=== PATIENT | male | born 1930 | race Caucasian/White ===

== ENCOUNTER 2017-02-11 18:28 | Inpatient (IN) | payer MEDICARE, MEDICAID ==
--- NOTE | 2017-02-11 20:02 | ED Physician Chart ---
ED Chief Complaint/HPI - Patient Information Date Seen:: 02/11/17 Time Seen:: 18:35 Chief Complaint:: Weakness History of Present Illness:: onset x 3 days of generalized weakness, dizziness, and AMS; no trauma, H/As, neck pain, C/P, SOB, Abd. pain, A/N/V/D/c, fever, chills, or urinary s/s Allergies:: Allergies Allergy/AdvReac Type Severity Reaction Status Date / Time No Known Allergies Allergy Verified 02/11/17 18:33 Vitals:: Vital Signs - 8 hr 02/11/17 18:33 Temp 97.9 F HR 59 RR 16 BP 131/59 O2 Sat % 94 Historian:: Patient, EMS Review:: Nurse's Note Reviewed, EMS run form Reviewed, Transfer documents Reviewed ED Review of Systems - Review of Systems General/Constitutional: Fever, No chills, No weight loss, No weakness, No diaphoresis, No edema, No loss of appetite Skin: No skin lesions, No rash, No bruising Head: No headache, No light-headedness Eyes: No loss of vision, No pain, No diplopia ENT: No earache, No nasal drainage, No sore throat, No tinnitus Neck: No neck pain, No swelling, No thyromegaly, No stiffness, No mass noted Cardio Vascular: No chest pain, No palpitations, No PND, No orthopnea, No edema Pulmonary: SOB, Cough, No sputum, No wheezing GI: No nausea, No vomiting, No diarrhea, No pain, No melena, No hematochezia, No constipation, No hematemesis G/U: No dysuria, No frequency, No hematuria Musculoskeletal: No bone or joint pain, No back pain, No muscle pain Endocrine: No polyuria, No polydipsia Psychiatric: No prior psych history, No depression, No anxiety, No suicidal ideation Hematopoietic: No bruising, No lymphadenopathy Allergic/Immuno: No urticaria, No angioedema Neurological: Syncope, No focal symptoms, Weakness, No paresthesia, No headache , No seizure, Dizziness, Confusion, Vertigo ED Past Medical History - Past Medical History Obtainable: Yes Past Medical History: HTN, CAD, CHF, Dyslipidemia, PUD/GERD, ESRD, Dementia Family History: Heart disease, Diabetes Melitus, HTN Social History: Non Smoker, No Alcohol, No Drug Use, Single, Care Facility Surgical History: None Psychiatricy History: Dementia Medication: Reviewed Family Medical History - Family Member Mother History Unknown: Yes ED Physical Exam - Physical Examination General/Constitutional: Awake, Well-developed, well-nourished, Alert, No distress, GCS 15, Non-toxic appearing, Ambulatory Head: Atraumatic Eyes: Lids, conjuctiva normal, PERRL, EOMI Skin: Nl inspection, No rash, No skin lesions, No ecchymosis, Well hydrated, No lymphadenopathy ENMT: External ears, nose nl, Nasal exam nl, Lips, teeth, gums nl Neck: Nontender, Full ROM w/o pain, No JVD, No nuchal rigidity, No bruit, No mass, No stridor Respiratory: Nl effort/Exclusion, Clear to Auscultation, No Wheeze/Rhonchi/Rales Cardio Vascular: RRR, No murmur, gallop, rubs, NL S1 S2 GI: No tenderness/rebounding/guarding, No organomegaly, No hernia, Normal BS's, Nondistended, No mass/bruits, No McBurney tenderness : No CVA tenderness Extremities: No tenderness or effusion, Full ROM, normal strength in all extremities, No edema, Normal digits & nails Neuro/Psych: DTR's symmetric, Normal sensory exam, Normal motor strength, Judgement/insight normal, Mood normal, Normal gait, No focal deficits Other Neuro/Psych comments:: Confused and Disoriented Misc: Normal back, No paraspinal tenderness ED Labs/Radiology/EKG Results - Lab Results Comments:: H/H: 7.7/24.8 - Radiology Results Results: NAD - EKG Interpretations Rate & Rhythm: NSR Comments:: non-specific st-t changes ED Septic Shock - . Is Septic Shock (SBP<90, OR Lactate>4 mmol\L) present?: No - <6hrs of presentation: Vital Signs: Vital Signs - 8 hr 02/11/17 18:33 Temp 97.9 F HR 59 RR 16 BP 131/59 O2 Sat % 94 ED Reassessment (Disposition) - Reassessment Reassessment Condition:: Improved - Diagnosis Diagnosis:: Dx: AMS; ALOC; Anemia; Weakness - Aftercare/Follow up Instructions Aftercare/Follow-Up Instructions:: Counseled pt regarding lab results/diagnosis & need follow up, Counseled pt & family regarding lab results/diagnosis & need follow up - Patient Disposition Discharge/Transfer:: Acute Care w/in this hosp Accepting Physician:: Dr. Tejada Time Called:: 2199 Time Responded:: 22:00 Admitted to:: Telemetry Spoke to:: Dr. Tejada Admitting Medical Physician:: Dr. Tejada Condition at Disposition:: Stable, Improved
[2017-02-11 20:32] LABS: HEMATOCRIT 24.8 % (41.0-60); MEAN CORPUSCULAR HEMOGLOBIN 18.8 pg (27.0-31.0); MEAN CORPUSCULAR HGB CONC 31.1 pg (28.0-36.0); MEAN PLATELET VOLUME 7.4 fl; PLATELET COUNT 342 Th/cmm (150-400); RED BLOOD COUNT 4.09 Mil/cmm (3.80-5.80); RED CELL DISTRIBUTION WIDTH 17.3 % (11.5-20.0); WHITE BLOOD COUNT 6.2 Th/cmm (4.8-10.8)
[2017-02-11 20:43] LABS: INR 3.06 (0.5-1.4); PROTHROMBIN TIME (TEST) 33.7 SECONDS (9.5-11.5)
[2017-02-11 20:49] LABS: ALB/GLOB RATIO 1.3 (1.0-1.8); ALKALINE PHOSPHATASE 63 U/L (34-104); ANION GAP 9.1 (7.0-16.0); BILIRUBIN,TOTAL 0.3 mg/dL (0.3-1.0); BUN - UREA NITROGEN 24 mg/dL (7-25); CARBON DIOXIDE 23.4 mEq/L (21.0-31.0); CHLORIDE 106 mEq/L (98-107); CHOLESTEROL 136 mg/dL (<200); CREATININE - SERUM 1.6 mg/dL (0.7-1.3); GLUCOSE 128 mg/dL (70-105); POTASSIUM SERUM 4.5 mEq/L (3.5-5.1); SGOT 11 U/L (13-39); SGPT/ALT 10 U/L (7-52); SODIUM SERUM 134 mEq/L (136-145); TRIGLYCERIDES 257 mg/dL (<150)
[2017-02-11 21:43] LABS: HEMOGLOBIN 7.7 gm/dL (12-16)
[2017-02-11 21:51] LABS: MEAN CELL VOLUME 60.7 fl (80-99)
[2017-02-11 21:52] LABS: BAND NEUTROPHILE 0 % (0-10); BASOPHIL 0 % (0-3); EOSINOPHIL 7 % (0-5); NEUTROPHILS 68 % (40-80); PLATELET ESTIMATE ADEQUATE (NORMAL); PLATELET MORPHOLOGY NORMAL (NORMAL); TOTAL CELLS COUNTED 100
[2017-02-11 21:53] LABS: ANISOCYTOSIS 1+; HYPOCHROMIA 1+; MICROCYTOSIS 3+
[2017-02-12] MEDS: D5-0.45NS w/20 mEq KCL 1,000 ML IV SCH (00:25)
[2017-02-12 01:09] VITALS: BP 101/45
--- NOTE | 2017-02-12 01:20 | History & Physical ---
ADMIT DATE: 02/11/2017 CHIEF COMPLAINT: Generalized weakness, altered level of consciousness. HISTORY OF PRESENT ILLNESS: The patient is an 86-year-old male with long history of dementia, degenerative joint disease, cardiac arrhythmia, resident at [facility] transferred to the Emergency Room with generalized weakness, altered level of consciousness. The patient evaluated by the ER physician. Initial workup significant for anemia, hemoglobin was 7.7, creatinine 1.6. The patient admitted to the hospital for more workup. The patient started on IV fluids, regular diet. Blood workup for tomorrow ordered. The patient is a poor historian. PAST MEDICAL HISTORY: Significant for dementia, degenerative joint disease, history of cardiac arrhythmia. PAST SURGICAL HISTORY: No recent surgery. ALLERGIES: None. MEDICATIONS: Follow admission reconciliation. SOCIAL HISTORY: No smoking, alcohol or drug use. FAMILY HISTORY: Noncontributory. REVIEW OF SYSTEMS: RENAL SYSTEM: No history of chronic renal disorder. CARDIOVASCULAR SYSTEM: No coronary artery disease. ENDOCRINE SYSTEM: No diabetes or thyroid problem. GASTROINTESTINAL SYSTEM: No upper or lower gastrointestinal bleed. NEUROLOGICAL SYSTEM: Has history of dementia. GENITOURINARY: He has degenerative joint disease especially on both knees. PHYSICAL EXAMINATION: GENERAL: He is awake, not coherent. VITAL SIGNS: Temperature is 98.5, heart rate 92, blood pressure 117/78. HEENT: Normocephalic. Pupils reacting equally to light and accommodation. Sclerae clear. NECK: Supple. Negative for lymphadenopathy, JVD or bruit. CHEST: ____ bilaterally normal. No rhonchi or wheezing. HEART: S1, S2. No murmur or gallop. ABDOMEN: Soft, bowel sounds positive. EXTREMITIES: Significant for tenderness to both knees. NEUROLOGIC: Awake, not coherent. LABORATORY DATA: White blood cells 6.2, hemoglobin 7.7, hematocrit 24.8, platelets 342. PTT 3.79. INR 3.06. Sodium 134, potassium 4.5, BUN 24, creatinine 1.6. ASSESSMENT: 1. Altered level of consciousness. 2. Severe anemia. 3. Dementia. 4. Degenerative joint disease. PLAN: The patient admitted to the hospital under Dr. Tejada's service, started on IV fluids, regular diet. The patient will resume his home medications. CBC, CMP, PT, INR for tomorrow. Anemia panel ordered. Stool for occult blood ordered. The patient is a full code. JOB# [id number]
[2017-02-12] MEDS ORDERED: Influenza Vaccine 0.5 mL Syr IM ONE (02:58)
[2017-02-12 05:24] LABS: HEMATOCRIT 24.4 % (41.0-60); MEAN CORPUSCULAR HEMOGLOBIN 18.4 pg (27.0-31.0); MEAN CORPUSCULAR HGB CONC 30.2 pg (28.0-36.0); MEAN PLATELET VOLUME 7.4 fl; PLATELET COUNT 344 Th/cmm (150-400); RED BLOOD COUNT 4.02 Mil/cmm (3.80-5.80); RED CELL DISTRIBUTION WIDTH 17.4 % (11.5-20.0); WHITE BLOOD COUNT 5.7 Th/cmm (4.8-10.8)
[2017-02-12 05:40] LABS: HEMOGLOBIN 7.4 gm/dL (12-16); INR 2.71 (0.5-1.4); PROTHROMBIN TIME (TEST) 29.7 SECONDS (9.5-11.5)
[2017-02-12 05:44] LABS: ALB/GLOB RATIO 1.2 (1.0-1.8); ALKALINE PHOSPHATASE 52 U/L (34-104); ANION GAP 9.7 (7.0-16.0); BILIRUBIN,TOTAL 0.3 mg/dL (0.3-1.0); BUN - UREA NITROGEN 21 mg/dL (7-25); CALCIUM SERUM 8.1 mg/dL (8.6-10.3); CARBON DIOXIDE 22.4 mEq/L (21.0-31.0); CHLORIDE 107 mEq/L (98-107); CREATININE - SERUM 1.4 mg/dL (0.7-1.3); GLUCOSE 101 mg/dL (70-105); POTASSIUM SERUM 4.1 mEq/L (3.5-5.1); SGOT 11 U/L (13-39); SGPT/ALT 9 U/L (7-52); SODIUM SERUM 135 mEq/L (136-145)
[2017-02-12 05:54] LABS: EOSINOPHIL 7 % (0-5); HYPOCHROMIA 1+; MICROCYTOSIS 2+; NEUTROPHILS 60 % (40-80); TOTAL CELLS COUNTED 100
[2017-02-12 06:48] LABS: MEAN CELL VOLUME 60.8 fl (80-99)
--- NOTE | 2017-02-12 08:14 | Diagnostic Imaging Report ---
CT scan of the brain without intravenous contrast HISTORY: Altered mental status Total DLP equals 599 CTDI equals 33.9 Axial sections were obtained from the base of the skull to the vertex. There is prominence/enlargement of the ventricular system size. Associated enlargement of cerebral sulci and subarachnoid cisterns. Findings are consistent with changes of generalized cerebral atrophy. No acute parenchymal abnormalities. No acute cerebral hemorrhage. Hypodensity is seen within the supratentorial white matter regions without mass effect. The findings may be associated with chronic small vessel ischemic disease. No extra-axial masses or abnormal fluid collections. IMPRESSION: 1. No acute abnormalities. 2. Cerebral atrophy. 3. Supratentorial white matter changes that may reflect chronic small vessel ischemic disease.
--- NOTE | 2017-02-12 08:16 | Diagnostic Imaging Report ---
Exam: Portable examination of chest. HISTORY: Chest pain. 5: Portable examination of chest at 2044 hours reviewed, no prior studies available comparison. Bony thorax intact. Fusion lower cervical spine appreciated There is no evidence for active pulmonic infiltrates. Atelectasis right base appreciated. The aortic arch calcified. There is evidence of for soft tissue density in the left pulmonary artery which might represent prominent pulmonary hilum. Correlation prior examination recommended. If old films not available comparison CT examination of the chest might be helpful. Bony thorax remarkable for degenerative changes. IMPRESSION: 1. No acute disease 2. Right base atelectasis 3. Soft tissue density measuring 4 cm diameter in the left aortopulmonary window most likely represent prominent pulmonary artery correlation prior studies recommended.
[2017-02-12] MEDS: Multivitamin w/ Minerals Tab PO SCH ×2 (09:39→12:46)
[2017-02-12] MEDS: Calcium Carb/Vit D 500 mg/200 U Tab PO SCH ×2 (09:39→12:45)
--- NOTE | 2017-02-12 19:45 | Internal Medicine Prog Note ---
Internal Medicine Subjective - Subjective Service Date: 02/12/17 Patient seen and examined:: with staff Patient is:: awake, in bed, talking, confused Per staff patient has:: no adverse event (HE FEELS BETTER,NO PAIN OR SOB.) Internal Medicine Objective - Results Result Diagrams: 02/12/17 05:04 02/12/17 05:04 Recent Labs: Laboratory Last Values WBC 5.7 Th/cmm (4.8-10.8) 02/12/17 05:04 RBC 4.02 Mil/cmm (3.80-5.80) 02/12/17 05:04 Hgb 7.4 gm/dL (12-16) L* 02/12/17 05:04 Hct 24.4 % (41.0-60) L 02/12/17 05:04 MCV 60.8 fl (80-99) L 02/12/17 05:04 MCH 18.4 pg (27.0-31.0) L 02/12/17 05:04 MCHC Differential 30.2 pg (28.0-36.0) 02/12/17 05:04 RDW 17.4 % (11.5-20.0) 02/12/17 05:04 Plt Count 344 Th/cmm (150-400) 02/12/17 05:04 MPV 7.4 fl 02/12/17 05:04 Band Neutrophils % 0 % (0-10) 02/11/17 20:21 Neutrophils (Manual) 60 % (40-80) 02/12/17 05:04 Lymphocytes 27 % (20-50) 02/12/17 05:04 Monocytes 6 % (2-10) 02/12/17 05:04 Eosinophils 7 % (0-5) H 02/12/17 05:04 Basophils 0 % (0-3) 02/11/17 20:21 Hypochromia 1+ 02/12/17 05:04 Platelet Estimate ADEQUATE (NORMAL) 02/11/17 20:21 Platelet Morphology NORMAL (NORMAL) 02/11/17 20:21 Anisocytosis 1+ 02/11/17 20:21 Microcytosis 2+ 02/12/17 05:04 RBC Morph Micro Appear ABNORMAL (NORMAL) 02/11/17 20:21 PT 29.7 SECONDS (9.5-11.5) H 02/12/17 05:04 INR 2.71 (0.5-1.4) H 02/12/17 05:04 PTT (Actin FS) 40.1 SECONDS (26.0-38.0) H 02/11/17 20:21 D-Dimer 816 ng/mL (100-400) H 02/11/17 20:21 Sodium 135 mEq/L (136-145) L 02/12/17 05:04 Potassium 4.1 mEq/L (3.5-5.1) 02/12/17 05:04 Chloride 107 mEq/L (98-107) 02/12/17 05:04 Carbon Dioxide 22.4 mEq/L (21.0-31.0) 02/12/17 05:04 Anion Gap 9.7 (7.0-16.0) 02/12/17 05:04 BUN 21 mg/dL (7-25) 02/12/17 05:04 Creatinine 1.4 mg/dL (0.7-1.3) H 02/12/17 05:04 Est GFR ( Amer) TNP 02/12/17 05:04 Est GFR (Non-Af Amer) TNP 02/12/17 05:04 BUN/Creatinine Ratio 15.0 02/12/17 05:04 Glucose 101 mg/dL (70-105) 02/12/17 05:04 Whole Bld Lactic Acid 1.25 mmol/L (0.60-1.99) 02/11/17 20:21 Calcium 8.1 mg/dL (8.6-10.3) L 02/12/17 05:04 Total Bilirubin 0.3 mg/dL (0.3-1.0) 02/12/17 05:04 AST 11 U/L (13-39) L 02/12/17 05:04 ALT 9 U/L (7-52) 02/12/17 05:04 Alkaline Phosphatase 52 U/L (34-104) 02/12/17 05:04 Creatine Kinase 68 U/L (30-223) 02/11/17 20:21 Troponin I 0.02 ng/mL (0.01-0.05) 02/11/17 20:21 B-Natriuretic Peptide 61.6 pg/mL (5.0-100.0) 02/11/17 20:21 Total Protein 5.5 gm/dL (6.0-8.3) L 02/12/17 05:04 Albumin 3.0 gm/dL (4.2-5.5) L 02/12/17 05:04 Globulin 2.5 gm/dL 02/12/17 05:04 Albumin/Globulin Ratio 1.2 (1.0-1.8) 02/12/17 05:04 Triglycerides 257 mg/dL (<150) H 02/11/17 20:21 Cholesterol 136 mg/dL (<200) 02/11/17 20:21 LDL Cholesterol Direct 83 mg/dL (75-193) 02/11/17 20:21 HDL Cholesterol 30 mg/dL (23-92) 02/11/17 20:21 Stool Occult Blood NEGATIVE (NEGATIVE) 02/11/17 22:05 Blood Type O POSITIVE 02/12/17 06:15 Antibody Screen NEGATIVE 02/12/17 06:15 Crossmatch See Detail 02/12/17 06:15 - Physical Exam Vitals and I&O: Vital Signs Temp 98.2 F 02/12/17 15:32 Pulse 87 02/12/17 15:32 Resp 18 02/12/17 15:32 BP 111/93 02/12/17 15:32 Pulse Ox 95 02/12/17 15:32 Intake & Output 02/12/17 02/12/17 02/13/17 06:59 18:59 06:59 Intake Total 1000 Balance 1000 Weight (lbs) 69.899 kg 69.899 kg Intake: Oral 500 Blood Product 500 Other: # Voids 2 # Bowel Movements 0 Stool Characteristics Soft Soft Formed Formed Active Medications: Current Medications Acetaminophen (Tylenol) 650 mg PO Q4HR PRN PRN Reason: Pain (Mild) Stop: 04/12/17 23:12 Calcium/Vitamin D (Oscal W/Vitamin D) 1 tab PO DAILY [facility] Stop: 04/13/17 08:59 Last Admin: 02/12/17 12:45 Dose: 1 tab Docusate Sodium (Colace) 100 mg PO DAILY [facility] Stop: 04/13/17 08:59 Last Admin: 02/12/17 12:45 Dose: 100 mg Donepezil HCl (Aricept) 10 mg PO DAILY [facility] Stop: 04/13/17 08:59 Last Admin: 02/12/17 12:46 Dose: 10 mg Famotidine (Pepcid) 20 mg PO DAILY [facility] Stop: 04/13/17 08:59 Last Admin: 02/12/17 12:45 Dose: 20 mg Potassium Chloride/Dextrose/Sod Cl (D5-0.45ns W/20 Meq Kcl) 1,000 mls @ 75 mls/ hr IV .[id number] SAM Stop: 04/12/17 23:31 Last Admin: 02/12/17 00:25 Dose: 75 mls/hr General: demented HEENT: NC/AT, PERRLA, EOMI, anicteric sclerae, throat clear Neck: Supple, No JVD, No thyromegaly Lungs: CTAB Cardiovascular: Normal S1, Normal S2, without murmur Abdomen: soft, non-tender, non-distended Extremities: clear Neurological: no change Internal Medicine Assmt/Plan - Assessment Assessment: 1.ANEMIA. 2.DEMENTIA - Plan Plan: CONTINUE ON CURRENT MEDICATION AND DIET.CBC AND CMP IN AM. Nutritional Asmnt/Malnutr-PDOC - Dietary Evaluation Malnutrition Findings (Please click <Entered> for more info): Nutritional Asmnt/Malnutrition Start: 02/12/17 14: 35 Text: Status: Complete Freq: Document 02/12/17 14:35 PAM (Rec: 02/12/17 14:40 PAM MCCULLOUGH -[id number]) Nutritional Asmnt/Malnutrition Patient General Information Nutritional Screening Consult Diagnosis ALOC, generalized weakness Pertinent Medical Hx/Surgical Hx PMH: dementia, DJD, cardiac arrhythmia per MDn notes Subjective Information Pt seen for Nutrition Consult (Lino 12). Pt seen resting in bed w/ PRBC infusing as per MD orders. Pt seemingly confused and unable to engage in meaningful RD verbal interview. Pt's son and grandson at bedside participated in interview. They reported that pt usually has a poor appetite and requires encouragement w/ eating. Pt resides at [facility] facility per family report. Per RN, pt has been eating a bit and tolerating current diet well. Family reported that pt enjoys drinking juices and other beverages through a straw. Per nursing notes, pt's stool has been soft/formed, and bowel sounds have been normal. Pt is not yet meeting optimal nutritional needs. Pt may benefit from oral supplement for adequate nutrition. Family reported pt would enjoy chocolate-flavored oral supplement. Pt is not appropriate for nutrition education. Current Diet Order/ Nutrition Support Mechanical soft ground diet Patient / S.O Can Pertinent Medications oscal w/ VIT D, colace, pepcid , KCl/D5%/NaCl IV at 75 ml/hr (306 kcal/day) Pertinent Labs Na 135 L, CRE 1.4 H, ALB 3 L, Triglycerides 257 H, H/H 7.4 L /24.4 L Nutritional Hx/Data Height 1.7 m Height (Calculated Centimeters) 170.2 Current Weight (lbs) 69.853 kg Weight (Calculated Kilograms) 69.9 Weight (Calculated Grams) 22099.2 [place] Body Weight 148 lb, 67 kg % [place] Body Weight 104 Recent Weight Change No Weight Status Approriate GI Symptoms GI Symptoms None Difficult in: Chewing Swallowing Food Allergies No Usual diet at home Pureed Skin Integrity/Comment: Lino: 12; skin intact per nursing notes; very limited mobility noted Current %PO Poor (25-49%) Estimated Nutritional Goals BEE in Kcals: Using Current wt Calories/Kcals/Kg 25-30 kcal/kg CBW (maintenance ) Kcals Calculated 6715-0710 kcal/day Protein: Using Current wt Protein g/k gm/kg CBW (geriatric maintenance) Protein Calculated 70 gm/day Fluid: ml 1.8 L/day (25 ml.kg CBW for geriatric maintenance) Nutritional Problem 1. Problem Problem Inadequate nutritional intakes Etiology related to lack of appetite possibly a/w cognitive limitations Signs/Symptoms: as evidenced by PMH of dementia, and Hx of generally poor appetite without encouragement per family report. Malnutrition Alert Is there a minimum of two criteria No selected? Query Text:Check all the applicable criteria. A minimum of two criteria are recommended for diagnosis of either severe or non-severe malnutrition. Malnutrition Related to Morbid Obesity Malnutrition related to morbid obesity No Intervention/Recommendation Recommendations by RD Increase Calorie Intake Protein supplementation Comments * Recommend mechanical soft ground diet, Boost Plus BID (oral supplement provides an additional 720 kcal/day and 28 gm protein/day) Expected Outcomes/Goals Expected Outcomes/Goals - Monitor appetite and PO intakes w/ goal of pt meeting at least 75% of estimated nutritional needs, labs trending WNL, normal GI function, and skin integrity/ wt maintenance within 3-5 days
[2017-02-13 06:08] LABS: % BASOPHILS 0.9 % (0.0-2.0); % EOSINOPHILS 7.4 % (0.0-5.0); % LYMPHOCYTES 16.1 % (20.0-50.0); % MONOCYTES 11.8 % (2.0-10.0); % NEUTROPHILS 63.8 % (40.0-80.0); MEAN CORPUSCULAR HEMOGLOBIN 21.5 pg (27.0-31.0); MEAN CORPUSCULAR HGB CONC 31.8 pg (28.0-36.0); NEUTROPHILE ABSOLUTE 4.6 Th/cmm (1.8-8.0); PLATELET COUNT 320 Th/cmm (150-400); RED BLOOD COUNT 4.91 Mil/cmm (3.80-5.80); RED CELL DISTRIBUTION WIDTH 24.3 % (11.5-20.0)
[2017-02-13 06:09] LABS: HEMATOCRIT 33.2 % (41.0-60); HEMOGLOBIN 10.5 gm/dL (12-16); WHITE BLOOD COUNT 7.1 Th/cmm (4.8-10.8)
[2017-02-13 06:31] LABS: ALB/GLOB RATIO 1.1 (1.0-1.8); ALKALINE PHOSPHATASE 51 U/L (34-104); ANION GAP 9.3 (7.0-16.0); BILIRUBIN,TOTAL 0.6 mg/dL (0.3-1.0); BUN - UREA NITROGEN 19 mg/dL (7-25); BUN/CREATININE RATIO 13.6; CALCIUM SERUM 8.2 mg/dL (8.6-10.3); CARBON DIOXIDE 21.3 mEq/L (21.0-31.0); CHLORIDE 110 mEq/L (98-107); CREATININE - SERUM 1.4 mg/dL (0.7-1.3); GLUCOSE 92 mg/dL (70-105); POTASSIUM SERUM 4.6 mEq/L (3.5-5.1); SGOT 20 U/L (13-39); SGPT/ALT 16 U/L (7-52); SODIUM SERUM 136 mEq/L (136-145)
[2017-02-13 07:01] LABS: MEAN CELL VOLUME 67.5 fl (80-99)
[2017-02-13] MEDS: Calcium Carb/Vit D 500 mg/200 U Tab PO SCH (08:15)
[2017-02-13] MEDS: Multivitamin w/ Minerals Tab PO SCH (08:15)
[2017-02-13] MEDS: D5-0.45NS w/20 mEq KCL 1,000 ML IV SCH (08:16)
[2017-02-13 09:17] LABS: IRON SATURATION 4 % (15-55); TIBC (LCI) 248 ug/dL (250-450); UIBC 238 ug/dL (111-343)
== END 2017-02-13 14:14 | DRG 811 ==
LOC: ER 18:28 → MSI 22:20
PROVIDERS: ADMIT Family Medicine; ATTEND Family Medicine
PROC: 30233N1 Transfusion of Nonautologous Red Blood Cells into Peripheral Vein, Percutaneous Approach (ICD-10-PCS; principal; 2017-02-12)
DX: D64.9 Anemia, unspecified (principal); N18.6 End stage renal disease; I13.2 Hypertensive heart and chronic kidney disease with heart failure and with stage 5 chronic kidney disease, or end stage renal disease; F03.90 Unspecified dementia, unspecified severity, without behavioral disturbance, psychotic disturbance, mood disturbance, and anxiety; M19.90 Unspecified osteoarthritis, unspecified site; I50.9 Heart failure, unspecified; I25.10 Atherosclerotic heart disease of native coronary artery without angina pectoris; E78.5 Hyperlipidemia, unspecified; K21.9 Gastro-esophageal reflux disease without esophagitis; Z82.49 Family history of ischemic heart disease and other diseases of the circulatory system; Z83.3 Family history of diabetes mellitus
CPT/HCPCS: 36415-UA; 70450-TC; 71010-TC; 80053-TC; 80061-TC; 82270-TC; 82550-TC; 83540-90; 83550-90; 83605; 83880-TC; 84484-TC; 85007-TC; 85025-TC; 85027-TC; 85379-TC; 85610-TC; 85730-TC; 86850-TC; 86900-TC; 86901-TC; 86922-TC; 90784; 93005; 96374; J2060; P9016; Z7610

== ENCOUNTER 2017-02-13 14:35 | Inpatient (IN) | payer MEDICARE, MEDICAID ==
[2017-02-13 16:31] VITALS: BP 122/56
--- NOTE | 2017-02-13 19:24 | Discharge Summary ---
DATE OF DISCHARGE: 02/13/2017 FINAL DIAGNOSES: 1. Severe anemia. 2. Dehydration. 3. Dementia. 4. Gastroesophageal reflux. 5. History of paroxysmal atrial fibrillation. REVIEW OF HISTORY: The patient is an 86-year-old male with long history of dementia, gastroesophageal reflux, and paroxysmal atrial fibrillation, who presented to the Emergency Room with generalized weakness. On arrival, he was evaluated by the physician. Initial workup was significant for anemia and dehydration. The patient admitted to the hospital and 2 units of blood ordered and started on IV fluid. PHYSICAL EXAMINATION: GENERAL: On admission, he was very confused. VITAL SIGNS: Temperature 98, heart rate 88, and blood pressure 132/70. CHEST: Clear to auscultation. ABDOMEN: Soft. Bowel sounds positive. EXTREMITIES: No edema. LABORATORY DATA: Hemoglobin 7.4. COURSE OF HOSPITALIZATION: During his hospitalization, the patient received 2 units of blood, was rehydrated well. On the 02/12/2017, chest is clear to auscultation. Abdomen is soft and bowel sounds positive. Extremities have no edema. Hemoglobin is 10.4. DISPOSITION: On 02/13/2017, the patient was clinically stable. The patient was transferred to [facility] to continue on medication and diet. CONDITION ON DISCHARGE: Stable. MEDICATIONS: Follow discharge reconciliation. [facility]# [id number]
[2017-02-14] MEDS: Potassium Chloride 20 mEq ER Tab PO SCH (09:04)
--- NOTE | 2017-02-14 22:24 | History & Physical ---
ADMIT DATE: 02/13/2017 CHIEF COMPLAINT: Confusion. HISTORY OF PRESENT ILLNESS: This is an 86-year-old male with past medical history significant for dementia and gastroesophageal reflux disorder, was initially evaluated in [facility] for generalized weakness. The patient was found to be anemic. He received 2 units of packed red blood cells and was ____ and now sent for Psychiatric Unit for further psychiatric evaluation in [facility]. The patient is seen in the hospital bed. He is awake and alert, confused and a poor historian. Denies any pain, appears in no distress. PAST MEDICAL HISTORY: The patient has history of dementia, gastroesophageal reflux disorder, atrial fibrillation. MEDICATIONS: Per reconciliation. ALLERGIES: No known drug allergies. SOCIAL HISTORY: Denies tobacco, alcohol or illicit drug use. FAMILY HISTORY: Noncontributory. REVIEW OF SYSTEMS: IMMUNOLOGIC: No recurrent infection. CARDIOVASCULAR: No heart disease or hypertension. GASTROINTESTINAL: No nausea, vomiting or diarrhea. ENDOCRINE: No diabetes or thyroid disorder. NEUROLOGIC: No seizure or stroke. HEMATOLOGIC: No bleeding problems. PHYSICAL EXAMINATION: GENERAL: The patient is awake, alert, no acute distress. VITAL SIGNS: Temperature 98.3, pulse 79, respirations 18, blood pressure 106/48. HEENT: Pupils equally round. Anicteric sclerae. NECK: Supple, no JVD, mass or bruit auscultation. HEART: S1, S2 regular rate and rhythm. ABDOMEN: Soft, nontender, positive bowel sounds. EXTREMITIES: No clubbing, cyanosis or edema. BACK: No deformity. NEUROLOGIC: Moves all extremities equally. No lateralizing signs. ASSESSMENT: 1.Dementia. 2.Anemia, status post transfusion. 3.gastroesophageal reflux disorder. 4.History of atrial fibrillation. PLAN: Continue current medications and diet. We will continue to follow. JOB# [id number]
--- NOTE | 2017-02-14 22:58 | Consultation ---
DATE OF CONSULTATION: 02/14/2017 The patient was seen and evaluated. The patient's chart were reviewed. This is initial psychiatric evaluation. This is Dr. Reyna covering for Dr. Brown. CHIEF COMPLAINT: Altered mental status and agitation. HISTORY OF PRESENT ILLNESS: This is an 86-year-old male with a longstanding history of severe dementia and psychosis, who was brought here in the Emergency Room after found to be having generalized weakness and altered level of consciousness. Initial workup of the patient was negative. He was hydrated and then transferred here to the psych unit. Labs were reviewed. PAST MEDICAL HISTORY: Significant for dementia, DJD, cardiac arrhythmia. PAST SURGICAL HISTORY: None. ALLERGIES TO MEDICATIONS: NKDA. CURRENT MEDICATIONS: Upon transfer, he is on Aricept 10 mg p.o. b.i.d., famotidine 20 mg p.o. every day, Lasix, multivitamins, potassium chloride, warfarin. FAMILY PSYCHIATRIC HISTORY: None. ____ HISTORY: None. Previous history of alcohol or drug use, unknown. Previous inpatient, comprehensive rehabilitation, unknown. MENTAL STATUS EXAMINATION: Hits his room number board, difficult to engage in conversation, easily irritable, refuses the interview, unable to assess thought process, thought content. Poor insight, judgment and impulse control. Assessment of suicidal risk is high. ASSESSMENT AND PLAN: The patient is an 86-year-old male with a severe neurocognitive impairment with behavior disturbances and unspecified psychotic disorder who presents easily irritable, agitated medically cleared. We will continue monitor and evaluate. We will continue with Aricept and augment current regimen, antipsychotic if needed. In the meantime, we will obtain more collateral baseline information. ESTIMATED LENGTH OF STAY: Between 5-10 days, ____ no suicidal or homicidal ideation. PRIMARY DIAGNOSES: Unspecified psychosis disorder, rule out behavior disturbance secondary to dementia, rule out schizophrenia. MEDICAL DIAGNOSES: As noted above. SECONDARY DIAGNOSIS: None. [facility]# [id number]
[2017-02-15 06:33] LABS: % BASOPHILS 1.3 % (0.0-2.0); % EOSINOPHILS 9.3 % (0.0-5.0); % MONOCYTES 12.8 % (2.0-10.0); % NEUTROPHILS 58.6 % (40.0-80.0); HEMATOCRIT 33.5 % (41.0-60); HEMOGLOBIN 10.6 gm/dL (12-16); MEAN CORPUSCULAR HEMOGLOBIN 21.3 pg (27.0-31.0); MEAN CORPUSCULAR HGB CONC 31.5 pg (28.0-36.0); MEAN PLATELET VOLUME 7.6 fl; NEUTROPHILE ABSOLUTE 3.5 Th/cmm (1.8-8.0); PLATELET COUNT 340 Th/cmm (150-400); RED BLOOD COUNT 4.95 Mil/cmm (3.80-5.80); RED CELL DISTRIBUTION WIDTH 24.7 % (11.5-20.0); WHITE BLOOD COUNT 6.1 Th/cmm (4.8-10.8)
[2017-02-15 07:10] LABS: ANION GAP 9.5 (7.0-16.0); BUN - UREA NITROGEN 18 mg/dL (7-25); CALCIUM SERUM 8.4 mg/dL (8.6-10.3); CARBON DIOXIDE 20.9 mEq/L (21.0-31.0); CHLORIDE 109 mEq/L (98-107); CREATININE - SERUM 1.2 mg/dL (0.7-1.3); GLUCOSE 90 mg/dL (70-105); POTASSIUM SERUM 4.4 mEq/L (3.5-5.1); SODIUM SERUM 135 mEq/L (136-145)
[2017-02-15 07:31] LABS: MEAN CELL VOLUME 67.6 fl (80-99)
[2017-02-15] MEDS: Potassium Chloride 20 mEq ER Tab PO SCH (10:12)
--- NOTE | 2017-02-15 19:30 | Progress Notes ---
DATE: 02/15/2017 SUBJECTIVE: The patient was seen and evaluated. The patient's chart was reviewed. OBJECTIVE: VITAL SIGNS: Reviewed, stable. Overnight nursing staff reported the patient mostly has been isolating, withdrawn in his room, minimally interactive. Today on [id number] evaluation, the patient was selectively mute, observed to be responding, distraught, and unable to engage in a linear conversation. MENTAL STATUS EXAMINATION: He is still very distraught, observed to be responding, selectively mute, disengaging, and withdrawn. ASSESSMENT AND PLAN: The patient is an 86-year-old male who was observed to be continued to disorganized and responding internally preoccupied, unable to formulate a safe plan outside the structured environment. We will continue with the current medication regimen which was recently initiated yesterday to target the patient has still residual psychotic symptoms that impaired ability to provide food, snf, and clothing outside of the structured environment. JOB# [id number]
--- NOTE | 2017-02-15 21:01 | General Progress Note ---
Subjective - Review of Systems Service Date: 02/15/17 Subjective: resting comfortably no distress Objective - Results Result Diagrams: 02/15/17 06:05 02/15/17 06:05 Recent Labs: Laboratory Last Values WBC 6.1 Th/cmm (4.8-10.8) 02/15/17 06:05 RBC 4.95 Mil/cmm (3.80-5.80) 02/15/17 06:05 Hgb 10.6 gm/dL (12-16) L 02/15/17 06:05 Hct 33.5 % (41.0-60) L 02/15/17 06:05 MCV 67.6 fl (80-99) L 02/15/17 06:05 MCH 21.3 pg (27.0-31.0) L 02/15/17 06:05 MCHC Differential 31.5 pg (28.0-36.0) 02/15/17 06:05 RDW 24.7 % (11.5-20.0) H 02/15/17 06:05 Plt Count 340 Th/cmm (150-400) 02/15/17 06:05 MPV 7.6 fl 02/15/17 06:05 Neutrophils % 58.6 % (40.0-80.0) 02/15/17 06:05 Lymphocytes % 18.0 % (20.0-50.0) L 02/15/17 06:05 Monocytes % 12.8 % (2.0-10.0) H 02/15/17 06:05 Eosinophils % 9.3 % (0.0-5.0) H 02/15/17 06:05 Basophils % 1.3 % (0.0-2.0) 02/15/17 06:05 Sodium 135 mEq/L (136-145) L 02/15/17 06:05 Potassium 4.4 mEq/L (3.5-5.1) 02/15/17 06:05 Chloride 109 mEq/L (98-107) H 02/15/17 06:05 Carbon Dioxide 20.9 mEq/L (21.0-31.0) L 02/15/17 06:05 Anion Gap 9.5 (7.0-16.0) 02/15/17 06:05 BUN 18 mg/dL (7-25) 02/15/17 06:05 Creatinine 1.2 mg/dL (0.7-1.3) 02/15/17 06:05 Est GFR ( Amer) TNP 02/15/17 06:05 Est GFR (Non-Af Amer) TNP 02/15/17 06:05 BUN/Creatinine Ratio 15.0 02/15/17 06:05 Glucose 90 mg/dL (70-105) 02/15/17 06:05 Calcium 8.4 mg/dL (8.6-10.3) L 02/15/17 06:05 - Physical Exam Vitals and I&O: Vital Signs Temp 97.8 F 02/15/17 20:18 Pulse 74 02/15/17 20:18 Resp 19 02/15/17 20:18 BP 123/45 02/15/17 20:18 Pulse Ox 96 02/15/17 20:18 Intake & Output 02/15/17 02/15/17 02/16/17 06:59 18:59 06:59 Intake Total 360 800 240 Balance 360 800 240 Intake: Oral 360 800 240 Other: # Voids 1 5 1 # Bowel Movements 2 Active Medications: Current Medications Acetaminophen (Tylenol) 650 mg PO Q4H PRN PRN Reason: Pain (Mild) Stop: 04/14/17 16:44 Docusate Sodium (Colace) 100 mg PO DAILY [facility] Stop: 04/15/17 08:59 Last Admin: 02/15/17 10:13 Dose: 100 mg Donepezil HCl (Aricept) 10 mg PO DAILY [facility] Stop: 04/15/17 08:59 Last Admin: 02/15/17 10:13 Dose: 10 mg Famotidine (Pepcid) 20 mg PO DAILY [facility] Stop: 04/15/17 08:59 Last Admin: 02/15/17 10:14 Dose: 20 mg Furosemide (Lasix) 40 mg PO BID [facility] Stop: 04/14/17 16:59 Last Admin: 02/15/17 18:01 Dose: Not Given Lorazepam (Ativan) 0.5 mg PO Q4HR PRN; Protocol PRN Reason: Anxiety Stop: 03/15/17 16:48 Potassium Chloride (Klor-Con) 20 meq PO DAILY [facility] Stop: 04/15/17 08:59 Last Admin: 02/15/17 10:12 Dose: 20 meq Zolpidem Tartrate (Ambien) 5 mg PO HS PRN PRN Reason: Insomnia Stop: 04/14/17 16:48 General: Alert, No acute distress HEENT: Atraumatic, PERRLA Neck: Supple, JVD Cardiovascular: Regular rate, Normal S1, Normal S2 Lungs: Clear to auscultation Abdomen: Bowel sounds, Soft - Procedures Procedures: Procedures Procedure Code Date BLOOD TRANSFUSION SERVICE 18252 02/11/17 TRANSFUSE NONAUT RED BLOOD CELLS IN PERIPH VEIN, [facility] [id number] 02/11/17 Assessment/Plan - Assessment Assessment: DEMENTIA ANEMIA GERD ATRIAL FIBRILLATION - Plan Plan: CONT CURRENT TREATMENT
[2017-02-16] MEDS: Potassium Chloride 20 mEq ER Tab PO SCH (10:26)
--- NOTE | 2017-02-16 19:05 | Internal Medicine Prog Note ---
Internal Medicine Subjective - Subjective Service Date: 02/16/17 Patient seen and examined:: without staff (HE FEELS WELL) Patient is:: awake, verbal, in bed Per staff patient has:: no adverse event Internal Medicine Objective - Results Result Diagrams: 02/15/17 06:05 02/15/17 06:05 Recent Labs: Laboratory Last Values WBC 6.1 Th/cmm (4.8-10.8) 02/15/17 06:05 RBC 4.95 Mil/cmm (3.80-5.80) 02/15/17 06:05 Hgb 10.6 gm/dL (12-16) L 02/15/17 06:05 Hct 33.5 % (41.0-60) L 02/15/17 06:05 MCV 67.6 fl (80-99) L 02/15/17 06:05 MCH 21.3 pg (27.0-31.0) L 02/15/17 06:05 MCHC Differential 31.5 pg (28.0-36.0) 02/15/17 06:05 RDW 24.7 % (11.5-20.0) H 02/15/17 06:05 Plt Count 340 Th/cmm (150-400) 02/15/17 06:05 MPV 7.6 fl 02/15/17 06:05 Neutrophils % 58.6 % (40.0-80.0) 02/15/17 06:05 Lymphocytes % 18.0 % (20.0-50.0) L 02/15/17 06:05 Monocytes % 12.8 % (2.0-10.0) H 02/15/17 06:05 Eosinophils % 9.3 % (0.0-5.0) H 02/15/17 06:05 Basophils % 1.3 % (0.0-2.0) 02/15/17 06:05 Sodium 135 mEq/L (136-145) L 02/15/17 06:05 Potassium 4.4 mEq/L (3.5-5.1) 02/15/17 06:05 Chloride 109 mEq/L (98-107) H 02/15/17 06:05 Carbon Dioxide 20.9 mEq/L (21.0-31.0) L 02/15/17 06:05 Anion Gap 9.5 (7.0-16.0) 02/15/17 06:05 BUN 18 mg/dL (7-25) 02/15/17 06:05 Creatinine 1.2 mg/dL (0.7-1.3) 02/15/17 06:05 Est GFR ( Amer) TNP 02/15/17 06:05 Est GFR (Non-Af Amer) TNP 02/15/17 06:05 BUN/Creatinine Ratio 15.0 02/15/17 06:05 Glucose 90 mg/dL (70-105) 02/15/17 06:05 Calcium 8.4 mg/dL (8.6-10.3) L 02/15/17 06:05 - Physical Exam Vitals and I&O: Vital Signs Temp 97.8 F 02/16/17 15:43 Pulse 89 02/16/17 15:43 Resp 18 02/16/17 15:43 BP 96/57 02/16/17 18:56 Pulse Ox 95 02/16/17 15:43 Intake & Output 02/16/17 02/16/17 02/17/17 06:59 18:59 06:59 Intake Total 240 1600 Balance 240 1600 Intake: Oral 240 1600 Other: # Voids 3 4 # Bowel Movements 0 1 Active Medications: Current Medications Acetaminophen (Tylenol) 650 mg PO Q4H PRN PRN Reason: Pain (Mild) Stop: 04/14/17 16:44 Docusate Sodium (Colace) 100 mg PO DAILY [facility] Stop: 04/15/17 08:59 Last Admin: 02/16/17 10:26 Dose: 100 mg Donepezil HCl (Aricept) 10 mg PO DAILY [facility] Stop: 04/15/17 08:59 Last Admin: 02/16/17 10:26 Dose: 10 mg Famotidine (Pepcid) 20 mg PO DAILY [facility] Stop: 04/15/17 08:59 Last Admin: 02/16/17 10:26 Dose: 20 mg Furosemide (Lasix) 40 mg PO BID [facility] Stop: 04/14/17 16:59 Last Admin: 02/16/17 18:56 Dose: Not Given Lorazepam (Ativan) 0.5 mg PO Q4HR PRN; Protocol PRN Reason: Anxiety Stop: 03/15/17 16:48 Memantine (Namenda) 5 mg PO DAILY [facility] Stop: 04/17/17 14:59 Potassium Chloride (Klor-Con) 20 meq PO DAILY [facility] Stop: 04/15/17 08:59 Last Admin: 02/16/17 10:26 Dose: 20 meq Zolpidem Tartrate (Ambien) 5 mg PO HS PRN PRN Reason: Insomnia Stop: 04/14/17 16:48 General: demented HEENT: NC/AT, PERRLA, EOMI, anicteric sclerae, throat clear Neck: Supple, No JVD, No thyromegaly, +2 carotid pulse wo bruit, No LAD Lungs: CTAB Cardiovascular: Normal S1, Normal S2, without murmur Abdomen: non-tender, non-distended Extremities: edema Neurological: no change - Procedures Procedures: Procedures Procedure Code Date BLOOD TRANSFUSION SERVICE 56476 02/11/17 TRANSFUSE NONAUT RED BLOOD CELLS IN PERIPH VEIN, [facility] 50714H0 02/11/17 Internal Medicine Assmt/Plan - Assessment Assessment: 1.ANEMIA 2.ONOFRE. 3.DEMENTIA. - Plan Plan: CONTINUE ON CURRENT MEDICATION AND DIET.
--- NOTE | 2017-02-17 03:03 | Progress Notes ---
DATE: 02/16/2017 Case was discussed with staff of the patient, reviewed records. The patient is an 86-year-old male who is a well-known case to me and I have seen him at [facility]. I have been seeing him for the past 2 years. He was agitated and that led to his admission. He is demented, confused, has altered level of consciousness. He is unpredictable, impulsive, unable to make safe plan for self-care. He is sleeping well, eating well, had to be fed by the staff and I will be initiating Namenda on him to help with his confusion. I will continue to work with the patient in group therapy, milieu therapy, and adjust medication as needed. JOB# [id number]
[2017-02-17] MEDS: Potassium Chloride 20 mEq ER Tab PO SCH (08:46)
--- NOTE | 2017-02-17 19:27 | Internal Medicine Prog Note ---
Internal Medicine Subjective - Subjective Service Date: 02/17/17 Patient seen and examined:: with staff (HE FEELS WELL) Patient is:: awake, verbal, in bed Per staff patient has:: no adverse event Internal Medicine Objective - Results Result Diagrams: 02/15/17 06:05 02/15/17 06:05 Recent Labs: Laboratory Last Values WBC 6.1 Th/cmm (4.8-10.8) 02/15/17 06:05 RBC 4.95 Mil/cmm (3.80-5.80) 02/15/17 06:05 Hgb 10.6 gm/dL (12-16) L 02/15/17 06:05 Hct 33.5 % (41.0-60) L 02/15/17 06:05 MCV 67.6 fl (80-99) L 02/15/17 06:05 MCH 21.3 pg (27.0-31.0) L 02/15/17 06:05 MCHC Differential 31.5 pg (28.0-36.0) 02/15/17 06:05 RDW 24.7 % (11.5-20.0) H 02/15/17 06:05 Plt Count 340 Th/cmm (150-400) 02/15/17 06:05 MPV 7.6 fl 02/15/17 06:05 Neutrophils % 58.6 % (40.0-80.0) 02/15/17 06:05 Lymphocytes % 18.0 % (20.0-50.0) L 02/15/17 06:05 Monocytes % 12.8 % (2.0-10.0) H 02/15/17 06:05 Eosinophils % 9.3 % (0.0-5.0) H 02/15/17 06:05 Basophils % 1.3 % (0.0-2.0) 02/15/17 06:05 Sodium 135 mEq/L (136-145) L 02/15/17 06:05 Potassium 4.4 mEq/L (3.5-5.1) 02/15/17 06:05 Chloride 109 mEq/L (98-107) H 02/15/17 06:05 Carbon Dioxide 20.9 mEq/L (21.0-31.0) L 02/15/17 06:05 Anion Gap 9.5 (7.0-16.0) 02/15/17 06:05 BUN 18 mg/dL (7-25) 02/15/17 06:05 Creatinine 1.2 mg/dL (0.7-1.3) 02/15/17 06:05 Est GFR ( Amer) TNP 02/15/17 06:05 Est GFR (Non-Af Amer) TNP 02/15/17 06:05 BUN/Creatinine Ratio 15.0 02/15/17 06:05 Glucose 90 mg/dL (70-105) 02/15/17 06:05 Calcium 8.4 mg/dL (8.6-10.3) L 02/15/17 06:05 - Physical Exam Vitals and I&O: Vital Signs Temp 97.6 F 02/17/17 14:23 Pulse 80 02/17/17 14:23 Resp 20 02/17/17 14:23 BP 138/72 02/17/17 17:37 Pulse Ox 96 02/17/17 14:23 Intake & Output 02/17/17 02/17/17 02/18/17 06:59 18:59 06:59 Intake Total 240 800 Balance 240 800 Intake: Oral 240 800 Other: # Voids 1 3 # Bowel Movements 1 Active Medications: Current Medications Acetaminophen (Tylenol) 650 mg PO Q4H PRN PRN Reason: Pain (Mild) Stop: 04/14/17 16:44 Docusate Sodium (Colace) 100 mg PO DAILY [facility] Stop: 04/15/17 08:59 Last Admin: 02/17/17 08:46 Dose: 100 mg Donepezil HCl (Aricept) 10 mg PO DAILY [facility] Stop: 04/15/17 08:59 Last Admin: 02/17/17 08:47 Dose: 10 mg Famotidine (Pepcid) 20 mg PO DAILY [facility] Stop: 04/15/17 08:59 Last Admin: 02/17/17 08:48 Dose: 20 mg Furosemide (Lasix) 40 mg PO BID [facility] Stop: 04/14/17 16:59 Last Admin: 02/17/17 17:37 Dose: 40 mg Lorazepam (Ativan) 0.5 mg PO Q4HR PRN; Protocol PRN Reason: Anxiety Stop: 03/15/17 16:48 Memantine (Namenda) 5 mg PO DAILY [facility] Stop: 04/17/17 14:59 Last Admin: 02/17/17 08:47 Dose: 5 mg Potassium Chloride (Klor-Con) 20 meq PO DAILY [facility] Stop: 04/15/17 08:59 Last Admin: 02/17/17 08:46 Dose: 20 meq Zolpidem Tartrate (Ambien) 5 mg PO HS PRN PRN Reason: Insomnia Stop: 04/14/17 16:48 General: demented HEENT: NC/AT, PERRLA, EOMI, anicteric sclerae, throat clear Neck: Supple, No JVD, No thyromegaly, +2 carotid pulse wo bruit, No LAD Lungs: CTAB Cardiovascular: Normal S1, Normal S2, without murmur Abdomen: non-tender, non-distended Extremities: edema Neurological: no change - Procedures Procedures: Procedures Procedure Code Date BLOOD TRANSFUSION SERVICE 89884 02/11/17 TRANSFUSE NONAUT RED BLOOD CELLS IN PERIPH VEIN, [facility] 44303C8 02/11/17 Internal Medicine Assmt/Plan - Assessment Assessment: 1.ANEMIA 2.ONOFRE. 3.DEMENTIA. - Plan Plan: CONTINUE ON CURRENT MEDICATION AND DIET.
--- NOTE | 2017-02-17 22:13 | Progress Notes ---
DATE: 02/17/2017 Case was discussed with staff of the patient, reviewed records. The patient continues to be unpredictable, impulsive, needing help with his ADLs. He has been unable to swallow and they ordered fluid diet for him; also asked him to consult with Dr. Tejada regarding that, if he needed a swallow study though the staff told me today he ate by himself 100% of his breakfast. He is still confused, demented, easily agitated, but compliant with medication with no side effects. We will continue to work with the patient in group therapy, milieu therapy, and adjust medications as needed. JOB# [id number]
[2017-02-18] MEDS: Potassium Chloride 20 mEq ER Tab PO SCH (09:29)
--- NOTE | 2017-02-18 17:15 | Progress Notes ---
DATE: Case was discussed with staff of the patient, reviewed records. The patient as I find talking with, he was moved across from nurses' station. He is on ____. He is still unpredictable, impulsive, needing re-direction, confused. No side effects with the medication, no sedation, no nausea and we will continue to work with the patient in group therapy, milieu therapy, adjust the medication as needed. JOB# [id number]
--- NOTE | 2017-02-18 19:40 | Internal Medicine Prog Note ---
Internal Medicine Subjective - Subjective Service Date: 02/18/17 Patient seen and examined:: with staff (he feels well,no complain) Patient is:: awake, verbal, in bed Per staff patient has:: no adverse event Internal Medicine Objective - Results Result Diagrams: 02/15/17 06:05 02/15/17 06:05 Recent Labs: Laboratory Last Values WBC 6.1 Th/cmm (4.8-10.8) 02/15/17 06:05 RBC 4.95 Mil/cmm (3.80-5.80) 02/15/17 06:05 Hgb 10.6 gm/dL (12-16) L 02/15/17 06:05 Hct 33.5 % (41.0-60) L 02/15/17 06:05 MCV 67.6 fl (80-99) L 02/15/17 06:05 MCH 21.3 pg (27.0-31.0) L 02/15/17 06:05 MCHC Differential 31.5 pg (28.0-36.0) 02/15/17 06:05 RDW 24.7 % (11.5-20.0) H 02/15/17 06:05 Plt Count 340 Th/cmm (150-400) 02/15/17 06:05 MPV 7.6 fl 02/15/17 06:05 Neutrophils % 58.6 % (40.0-80.0) 02/15/17 06:05 Lymphocytes % 18.0 % (20.0-50.0) L 02/15/17 06:05 Monocytes % 12.8 % (2.0-10.0) H 02/15/17 06:05 Eosinophils % 9.3 % (0.0-5.0) H 02/15/17 06:05 Basophils % 1.3 % (0.0-2.0) 02/15/17 06:05 Sodium 135 mEq/L (136-145) L 02/15/17 06:05 Potassium 4.4 mEq/L (3.5-5.1) 02/15/17 06:05 Chloride 109 mEq/L (98-107) H 02/15/17 06:05 Carbon Dioxide 20.9 mEq/L (21.0-31.0) L 02/15/17 06:05 Anion Gap 9.5 (7.0-16.0) 02/15/17 06:05 BUN 18 mg/dL (7-25) 02/15/17 06:05 Creatinine 1.2 mg/dL (0.7-1.3) 02/15/17 06:05 Est GFR ( Amer) TNP 02/15/17 06:05 Est GFR (Non-Af Amer) TNP 02/15/17 06:05 BUN/Creatinine Ratio 15.0 02/15/17 06:05 Glucose 90 mg/dL (70-105) 02/15/17 06:05 Calcium 8.4 mg/dL (8.6-10.3) L 02/15/17 06:05 - Physical Exam Vitals and I&O: Vital Signs Temp 98.2 F 02/18/17 14:00 Pulse 84 02/18/17 14:00 Resp 20 02/18/17 14:00 BP 120/60 02/18/17 16:38 Pulse Ox 97 02/18/17 14:00 Intake & Output 02/18/17 02/18/17 02/19/17 06:59 18:59 06:59 Intake Total 120 700 Balance 120 700 Intake: Oral 120 700 Other: # Voids 3 3 # Bowel Movements 0 0 Active Medications: Current Medications Acetaminophen (Tylenol) 650 mg PO Q4H PRN PRN Reason: Pain (Mild) Stop: 04/14/17 16:44 Docusate Sodium (Colace) 100 mg PO DAILY [facility] Stop: 04/15/17 08:59 Last Admin: 02/18/17 09:29 Dose: 100 mg Donepezil HCl (Aricept) 10 mg PO DAILY [facility] Stop: 04/15/17 08:59 Last Admin: 02/18/17 09:29 Dose: 10 mg Famotidine (Pepcid) 20 mg PO DAILY [facility] Stop: 04/15/17 08:59 Last Admin: 02/18/17 09:30 Dose: 20 mg Furosemide (Lasix) 40 mg PO BID [facility] Stop: 04/14/17 16:59 Last Admin: 02/18/17 16:38 Dose: 40 mg Lorazepam (Ativan) 0.5 mg PO Q4HR PRN; Protocol PRN Reason: Anxiety Stop: 03/15/17 16:48 Memantine (Namenda) 5 mg PO DAILY [facility] Stop: 04/17/17 14:59 Last Admin: 02/18/17 09:29 Dose: 5 mg Potassium Chloride (Klor-Con) 20 meq PO DAILY [facility] Stop: 04/15/17 08:59 Last Admin: 02/18/17 09:29 Dose: 20 meq Zolpidem Tartrate (Ambien) 5 mg PO HS PRN PRN Reason: Insomnia Stop: 04/14/17 16:48 General: demented HEENT: NC/AT, PERRLA, EOMI, anicteric sclerae, throat clear Neck: Supple, No JVD, No thyromegaly, +2 carotid pulse wo bruit, No LAD Lungs: CTAB Cardiovascular: Normal S1, Normal S2, without murmur Abdomen: non-tender, non-distended Extremities: edema Neurological: no change - Procedures Procedures: Procedures Procedure Code Date BLOOD TRANSFUSION SERVICE 96318 02/11/17 TRANSFUSE NONAUT RED BLOOD CELLS IN PERIPH VEIN, [facility] 57203H4 02/11/17 Internal Medicine Assmt/Plan - Assessment Assessment: 1.ANEMIA 2.ONOFRE. 3.DEMENTIA. - Plan Plan: CONTINUE ON CURRENT MEDICATION AND DIET.
--- NOTE | 2017-02-19 07:42 | Diagnostic Imaging Report ---
CHEST X-RAY: AP view INDICATION: Pneumonia COMPARISON: Chest x-ray 02/11/2017 FINDINGS: Mild increase bibasal lung markings are noted. No pleural effusions. No consolidation. Heart size normal. Atherosclerosis is noted. IMPRESSION: Mild increased bibasal lung markings favoring atelectasis, however faint infiltrates of the lung bases cannot be completely excluded given patient's clinical history.
[2017-02-19] MEDS: Potassium Chloride 20 mEq ER Tab PO SCH (10:10)
--- NOTE | 2017-02-19 17:45 | Internal Medicine Prog Note ---
Internal Medicine Subjective - Subjective Service Date: 02/19/17 Patient seen and examined:: with staff (HE FEELS WELL.) Patient is:: awake, verbal, in bed Per staff patient has:: no adverse event Internal Medicine Objective - Results Result Diagrams: 02/15/17 06:05 02/15/17 06:05 Recent Labs: Laboratory Last Values WBC 6.1 Th/cmm (4.8-10.8) 02/15/17 06:05 RBC 4.95 Mil/cmm (3.80-5.80) 02/15/17 06:05 Hgb 10.6 gm/dL (12-16) L 02/15/17 06:05 Hct 33.5 % (41.0-60) L 02/15/17 06:05 MCV 67.6 fl (80-99) L 02/15/17 06:05 MCH 21.3 pg (27.0-31.0) L 02/15/17 06:05 MCHC Differential 31.5 pg (28.0-36.0) 02/15/17 06:05 RDW 24.7 % (11.5-20.0) H 02/15/17 06:05 Plt Count 340 Th/cmm (150-400) 02/15/17 06:05 MPV 7.6 fl 02/15/17 06:05 Neutrophils % 58.6 % (40.0-80.0) 02/15/17 06:05 Lymphocytes % 18.0 % (20.0-50.0) L 02/15/17 06:05 Monocytes % 12.8 % (2.0-10.0) H 02/15/17 06:05 Eosinophils % 9.3 % (0.0-5.0) H 02/15/17 06:05 Basophils % 1.3 % (0.0-2.0) 02/15/17 06:05 Sodium 135 mEq/L (136-145) L 02/15/17 06:05 Potassium 4.4 mEq/L (3.5-5.1) 02/15/17 06:05 Chloride 109 mEq/L (98-107) H 02/15/17 06:05 Carbon Dioxide 20.9 mEq/L (21.0-31.0) L 02/15/17 06:05 Anion Gap 9.5 (7.0-16.0) 02/15/17 06:05 BUN 18 mg/dL (7-25) 02/15/17 06:05 Creatinine 1.2 mg/dL (0.7-1.3) 02/15/17 06:05 Est GFR ( Amer) TNP 02/15/17 06:05 Est GFR (Non-Af Amer) TNP 02/15/17 06:05 BUN/Creatinine Ratio 15.0 02/15/17 06:05 Glucose 90 mg/dL (70-105) 02/15/17 06:05 Calcium 8.4 mg/dL (8.6-10.3) L 02/15/17 06:05 - Physical Exam Vitals and I&O: Vital Signs Temp 97.9 F 02/19/17 14:00 Pulse 99 02/19/17 14:00 Resp 20 02/19/17 14:00 BP 119/53 02/19/17 17:21 Pulse Ox 96 02/19/17 14:00 Intake & Output 02/18/17 02/19/17 02/19/17 18:59 06:59 18:59 Intake Total 700 120 Balance 700 120 Intake: Oral 700 120 Other: # Voids 3 3 # Bowel Movements 0 Active Medications: Current Medications Acetaminophen (Tylenol) 650 mg PO Q4H PRN PRN Reason: Pain (Mild) Stop: 04/14/17 16:44 Docusate Sodium (Colace) 100 mg PO DAILY [facility] Stop: 04/15/17 08:59 Last Admin: 02/19/17 10:08 Dose: 100 mg Donepezil HCl (Aricept) 10 mg PO DAILY [facility] Stop: 04/15/17 08:59 Last Admin: 02/19/17 10:09 Dose: 10 mg Famotidine (Pepcid) 20 mg PO DAILY [facility] Stop: 04/15/17 08:59 Last Admin: 02/19/17 10:09 Dose: 20 mg Furosemide (Lasix) 40 mg PO BID [facility] Stop: 04/14/17 16:59 Last Admin: 02/19/17 17:21 Dose: Not Given Lorazepam (Ativan) 0.5 mg PO Q4HR PRN; Protocol PRN Reason: Anxiety Stop: 03/15/17 16:48 Memantine (Namenda) 5 mg PO DAILY [facility] Stop: 04/17/17 14:59 Last Admin: 02/19/17 10:07 Dose: 5 mg Potassium Chloride (Klor-Con) 20 meq PO DAILY [facility] Stop: 04/15/17 08:59 Last Admin: 02/19/17 10:10 Dose: 20 meq Zolpidem Tartrate (Ambien) 5 mg PO HS PRN PRN Reason: Insomnia Stop: 04/14/17 16:48 General: demented HEENT: NC/AT, PERRLA, EOMI, anicteric sclerae, throat clear Neck: Supple, No JVD, No thyromegaly, +2 carotid pulse wo bruit, No LAD Lungs: CTAB Cardiovascular: Normal S1, Normal S2, without murmur Abdomen: non-tender, non-distended Extremities: edema Neurological: no change - Procedures Procedures: Procedures Procedure Code Date BLOOD TRANSFUSION SERVICE 33815 02/11/17 TRANSFUSE NONAUT RED BLOOD CELLS IN PERIPH VEIN, [facility] [id number] 02/11/17 Internal Medicine Assmt/Plan - Assessment Assessment: 1.ANEMIA 2.ONOFRE. 3.DEMENTIA. - Plan Plan: CONTINUE ON CURRENT MEDICATION AND DIET.
--- NOTE | 2017-02-19 23:14 | Progress Notes ---
DATE: 02/19/2017 The case was discussed with staff of the patient. The patient is unable to swallow. Swallow study will be done for him. He is on aspiration precaution. He is sleeping well. He is unable to eat. He is still confused, unpredictable, impulsive, needing redirection. I do not have him on any antipsychotic to attribute his difficulty with swallowing to the antipsychotics that may happen sometimes and we will continue avoiding to do that. We will continue to work with the patient in group therapy, milieu therapy, adjust medication as needed. JOB# [id number]
[2017-02-20] MEDS: Potassium Chloride 20 mEq ER Tab PO SCH (18:48)
--- NOTE | 2017-02-20 20:39 | Internal Medicine Prog Note ---
Internal Medicine Subjective - Subjective Service Date: 02/20/17 Patient seen and examined:: with staff (he feels well) Patient is:: awake, verbal, in bed Per staff patient has:: no adverse event Internal Medicine Objective - Results Result Diagrams: 02/15/17 06:05 02/15/17 06:05 Recent Labs: Laboratory Last Values WBC 6.1 Th/cmm (4.8-10.8) 02/15/17 06:05 RBC 4.95 Mil/cmm (3.80-5.80) 02/15/17 06:05 Hgb 10.6 gm/dL (12-16) L 02/15/17 06:05 Hct 33.5 % (41.0-60) L 02/15/17 06:05 MCV 67.6 fl (80-99) L 02/15/17 06:05 MCH 21.3 pg (27.0-31.0) L 02/15/17 06:05 MCHC Differential 31.5 pg (28.0-36.0) 02/15/17 06:05 RDW 24.7 % (11.5-20.0) H 02/15/17 06:05 Plt Count 340 Th/cmm (150-400) 02/15/17 06:05 MPV 7.6 fl 02/15/17 06:05 Neutrophils % 58.6 % (40.0-80.0) 02/15/17 06:05 Lymphocytes % 18.0 % (20.0-50.0) L 02/15/17 06:05 Monocytes % 12.8 % (2.0-10.0) H 02/15/17 06:05 Eosinophils % 9.3 % (0.0-5.0) H 02/15/17 06:05 Basophils % 1.3 % (0.0-2.0) 02/15/17 06:05 Sodium 135 mEq/L (136-145) L 02/15/17 06:05 Potassium 4.4 mEq/L (3.5-5.1) 02/15/17 06:05 Chloride 109 mEq/L (98-107) H 02/15/17 06:05 Carbon Dioxide 20.9 mEq/L (21.0-31.0) L 02/15/17 06:05 Anion Gap 9.5 (7.0-16.0) 02/15/17 06:05 BUN 18 mg/dL (7-25) 02/15/17 06:05 Creatinine 1.2 mg/dL (0.7-1.3) 02/15/17 06:05 Est GFR ( Amer) TNP 02/15/17 06:05 Est GFR (Non-Af Amer) TNP 02/15/17 06:05 BUN/Creatinine Ratio 15.0 02/15/17 06:05 Glucose 90 mg/dL (70-105) 02/15/17 06:05 Calcium 8.4 mg/dL (8.6-10.3) L 02/15/17 06:05 - Physical Exam Vitals and I&O: Vital Signs Temp 97.9 F 02/19/17 14:00 Pulse 99 02/19/17 14:00 Resp 20 02/19/17 14:00 BP 107/47 02/20/17 18:49 Pulse Ox 96 02/19/17 14:00 Active Medications: Current Medications Acetaminophen (Tylenol) 650 mg PO Q4H PRN PRN Reason: Pain (Mild) Stop: 04/14/17 16:44 Docusate Sodium (Colace) 100 mg PO DAILY [facility] Stop: 04/15/17 08:59 Last Admin: 02/20/17 10:00 Dose: 100 mg Donepezil HCl (Aricept) 10 mg PO DAILY [facility] Stop: 04/15/17 08:59 Last Admin: 02/20/17 10:00 Dose: 10 mg Famotidine (Pepcid) 20 mg PO DAILY [facility] Stop: 04/15/17 08:59 Last Admin: 02/20/17 10:00 Dose: 20 mg Furosemide (Lasix) 40 mg PO BID [facility] Stop: 04/14/17 16:59 Last Admin: 02/20/17 18:49 Dose: Not Given Lorazepam (Ativan) 0.5 mg PO Q4HR PRN; Protocol PRN Reason: Anxiety Stop: 03/15/17 16:48 Memantine (Namenda) 5 mg PO DAILY [facility] Stop: 04/17/17 14:59 Last Admin: 02/20/17 10:00 Dose: 5 mg Potassium Chloride (Klor-Con) 20 meq PO DAILY [facility] Stop: 04/15/17 08:59 Last Admin: 02/20/17 18:48 Dose: 20 meq Zolpidem Tartrate (Ambien) 5 mg PO HS PRN PRN Reason: Insomnia Stop: 04/14/17 16:48 General: demented HEENT: NC/AT, PERRLA, EOMI, anicteric sclerae, throat clear Neck: Supple, No JVD, No thyromegaly, +2 carotid pulse wo bruit, No LAD Lungs: CTAB Cardiovascular: Normal S1, Normal S2, without murmur Abdomen: non-tender, non-distended Extremities: edema Neurological: no change - Procedures Procedures: Procedures Procedure Code Date BLOOD TRANSFUSION SERVICE 71663 02/11/17 TRANSFUSE NONAUT RED BLOOD CELLS IN PERIPH VEIN, PERC 54174U1 02/11/17 Internal Medicine Assmt/Plan - Assessment Assessment: 1.ANEMIA 2.ONOFRE. 3.DEMENTIA. - Plan Plan: CONTINUE ON CURRENT MEDICATION AND DIET. Nutritional Asmnt/Malnutr-PDOC - Dietary Evaluation Malnutrition Findings (Please click <Entered> for more info): Nutritional Asmnt/Malnutrition Start: 02/14/17 08: 28 Text: Status: Complete Freq: Document 02/20/17 15:57 MPENAFUERT (Rec: 02/20/17 16:08 MPENAFUERT JAMEL -FNS4) Nutritional Asmnt/Malnutrition Patient General Information Nutritional Screening Low Risk Diagnosis Psychosis Pertinent Medical Hx/Surgical Hx Dementia, GERD, atr fibr per MD notes Subjective Information Pt was seen and evaluated by ST for swallow eval on ; ST rec initiated and ongoing: pureed diet, honey thick liquids. RD called [facility] and spoke w/ pt's primary RN. RN statd that pt had a good appetite at lunch today and tolerated about 70% of Boost, apple juice, and pudding. She stated that she tries very hard to encourage pt to eat, as pt requires maximum assistance during meal times. She also confirmed pt' s anthropometrics, and stated that pt has not yet had a BM today. Pt is likely meeting lower end of estimated nutritional needs. Current diet is appropriate and adequate. Pt is not appropriate for nutrition education. Current Diet Order/ Nutrition Support Pureed, Boost BID, honey thick liquids Patient / S.O Can't verbalize diet edu Pertinent Medications colace, pepcid Pertinent Labs 02/15/17: Na 135 L, H/H 10.6 L /33.4 L, Ca 8.4 L Nutritional Hx/Data Height 1.7 m Height (Calculated Centimeters) 170.2 Current Weight (lbs) 67.132 kg Weight (Calculated Kilograms) 67.1 Weight (Calculated Grams) 98115.7 [place] Body Weight 148 lb, 67 kg % [place] Body Weight 100 Weight Status Approriate GI Symptoms GI Symptoms None Difficult in: Chewing Swallowing Food Allergies No Skin Integrity/Comment: Lino scale: 18; per RN, skin intact Current %PO Fair (50-74%) Estimated Nutritional Goals BEE in Kcals: Using Current wt Calories/Kcals/Kg 25-30 kcal/kg CBW for maintenance Kcals Calculated 4736-4224 kcal/day Protein: Using Current wt Protein g/k gm/kg CBW for geriatric maintenance Protein Calculated 67 gm/day Fluid: ml 1.7 L/day (25 ml/kg CBW for geriatric maintenance) Nutritional Problem 1. Problem Problem Chewing/swallowing difficulty Etiology related to possible cognitive limitations Signs/Symptoms: as evidenced by Hx of dementia , need for swallow evaluation, and current pureed diet w/ honey thick liquids food- texture modification. Malnutrition Alert Is there a minimum of two criteria No selected? Query Text:Check all the applicable criteria. A minimum of two criteria are recommended for diagnosis of either severe or non-severe malnutrition. Malnutrition Related to Morbid Obesity Malnutrition related to morbid obesity No Intervention/Recommendation Comments * Recommend continuing pureed, Boost BID, honey thick liquids per MD (oral supplement provides an additional 720 kcal/day and 30 gm protein/day) Expected Outcomes/Goals Expected Outcomes/Goals - Monitor appetite and PO intakes w/ goal of pt meeting at least 75% of estimated nutritional needs, labs trending WNL, normal GI function, and skin integrity/ wt maintenance within 7 days 02/20/17 16:06 Dietitian Notes by Clau Hand. Keily Addendum entered by Ma. Keily Hand 02/20/17 16:09: * Recommend continuing pureed, Boost BID, honey thick liquids per MD (oral supplement provides an additional 720 kcal/day and 30 gm protein/day) Original Note: Room/Bed: [address] Dietitian Recommendations * Recommend continuing pureed, Boost BID, honey thick liquids per MD Please refer to Nutrition Assessment for details. Initialized on 02/20/17 16:06 - END OF NOTE
--- NOTE | 2017-02-21 01:58 | Progress Notes ---
DATE: 02/20/2017 Case was discussed with staff of the patient, reviewed records. The patient continues to be unpredictable, impulsive, and needing redirection. I am avoiding giving any antipsychotic for this long problem. Dr. Tejada believes it is because of his medication; however, the patient is not on any antipsychotic that may do that. He is only on Aricept and Namenda. Swallow study was done for him. We will continue to work with the patient in group therapy, milieu therapy, and adjust medications. JOB# [id number]
[2017-02-21] MEDS: Potassium Chloride 20 mEq ER Tab PO SCH (09:41)
--- NOTE | 2017-02-21 16:08 | Internal Medicine Prog Note ---
Internal Medicine Subjective - Subjective Service Date: 02/21/17 Patient seen and examined:: with staff (HE THROUGH UP ONE TIME.) Patient is:: awake, verbal, in bed Per staff patient has:: no adverse event Internal Medicine Objective - Results Result Diagrams: 02/15/17 06:05 02/15/17 06:05 Recent Labs: Laboratory Last Values WBC 6.1 Th/cmm (4.8-10.8) 02/15/17 06:05 RBC 4.95 Mil/cmm (3.80-5.80) 02/15/17 06:05 Hgb 10.6 gm/dL (12-16) L 02/15/17 06:05 Hct 33.5 % (41.0-60) L 02/15/17 06:05 MCV 67.6 fl (80-99) L 02/15/17 06:05 MCH 21.3 pg (27.0-31.0) L 02/15/17 06:05 MCHC Differential 31.5 pg (28.0-36.0) 02/15/17 06:05 RDW 24.7 % (11.5-20.0) H 02/15/17 06:05 Plt Count 340 Th/cmm (150-400) 02/15/17 06:05 MPV 7.6 fl 02/15/17 06:05 Neutrophils % 58.6 % (40.0-80.0) 02/15/17 06:05 Lymphocytes % 18.0 % (20.0-50.0) L 02/15/17 06:05 Monocytes % 12.8 % (2.0-10.0) H 02/15/17 06:05 Eosinophils % 9.3 % (0.0-5.0) H 02/15/17 06:05 Basophils % 1.3 % (0.0-2.0) 02/15/17 06:05 Sodium 135 mEq/L (136-145) L 02/15/17 06:05 Potassium 4.4 mEq/L (3.5-5.1) 02/15/17 06:05 Chloride 109 mEq/L (98-107) H 02/15/17 06:05 Carbon Dioxide 20.9 mEq/L (21.0-31.0) L 02/15/17 06:05 Anion Gap 9.5 (7.0-16.0) 02/15/17 06:05 BUN 18 mg/dL (7-25) 02/15/17 06:05 Creatinine 1.2 mg/dL (0.7-1.3) 02/15/17 06:05 Est GFR ( Amer) TNP 02/15/17 06:05 Est GFR (Non-Af Amer) TNP 02/15/17 06:05 BUN/Creatinine Ratio 15.0 02/15/17 06:05 Glucose 90 mg/dL (70-105) 02/15/17 06:05 Calcium 8.4 mg/dL (8.6-10.3) L 02/15/17 06:05 - Physical Exam Vitals and I&O: Vital Signs Temp 95.7 F 02/20/17 20:00 Pulse 85 02/20/17 20:00 Resp 18 02/20/17 20:00 BP 134/77 02/21/17 09:40 Pulse Ox 94 02/20/17 20:00 Active Medications: Current Medications Acetaminophen (Tylenol) 650 mg PO Q4H PRN PRN Reason: Pain (Mild) Stop: 04/14/17 16:44 Docusate Sodium (Colace) 100 mg PO DAILY [facility] Stop: 04/15/17 08:59 Last Admin: 02/21/17 09:48 Dose: Not Given Donepezil HCl (Aricept) 10 mg PO DAILY [facility] Stop: 04/15/17 08:59 Last Admin: 02/21/17 09:41 Dose: 10 mg Famotidine (Pepcid) 20 mg PO DAILY [facility] Stop: 04/15/17 08:59 Last Admin: 02/21/17 09:40 Dose: 20 mg Furosemide (Lasix) 40 mg PO BID [facility] Stop: 04/14/17 16:59 Last Admin: 02/21/17 09:40 Dose: 40 mg Memantine (Namenda) 5 mg PO DAILY [facility] Stop: 04/17/17 14:59 Last Admin: 02/21/17 09:41 Dose: 5 mg Ondansetron HCl (Zofran Odt) 4 mg PO Q4H PRN PRN Reason: Nausea / Vomiting Stop: 04/22/17 12:50 Last Admin: 02/21/17 13:25 Dose: 4 mg Potassium Chloride (Klor-Con) 20 meq PO DAILY [facility] Stop: 04/15/17 08:59 Last Admin: 02/21/17 09:41 Dose: 20 meq General: demented HEENT: NC/AT, PERRLA, EOMI, anicteric sclerae, throat clear Neck: Supple, No JVD, No thyromegaly, +2 carotid pulse wo bruit, No LAD Lungs: CTAB Cardiovascular: Normal S1, Normal S2, without murmur Abdomen: non-tender, non-distended Extremities: edema Neurological: no change - Procedures Procedures: Procedures Procedure Code Date BLOOD TRANSFUSION SERVICE 34647 02/11/17 TRANSFUSE NONAUT RED BLOOD CELLS IN PERIPH VEIN, PERC 69696Q8 02/11/17 Internal Medicine Assmt/Plan - Assessment Assessment: 1.ANEMIA 2.ONOFRE. 3.DEMENTIA. - Plan Plan: CONTINUE ON CURRENT MEDICATION AND DIET.ZOFRAN 4 MG PO Q 6H PRN. Nutritional Asmnt/Malnutr-PDOC - Dietary Evaluation Malnutrition Findings (Please click <Entered> for more info): Nutritional Asmnt/Malnutrition Start: 02/14/17 08: 28 Text: Status: Complete Freq: Document 02/20/17 15:57 MPENAFUERT (Rec: 02/20/17 16:08 MPENAFUERT JAMEL -FNS4) Nutritional Asmnt/Malnutrition Patient General Information Nutritional Screening Low Risk Diagnosis Psychosis Pertinent Medical Hx/Surgical Hx Dementia, GERD, atr fibr per MD notes Subjective Information Pt was seen and evaluated by ST for swallow eval on ; ST rec initiated and ongoing: pureed diet, honey thick liquids. RD called [facility] station and spoke w/ pt's primary RN. RN statd that pt had a good appetite at lunch today and tolerated about 70% of Boost, apple juice, and pudding. She stated that she tries very hard to encourage pt to eat, as pt requires maximum assistance during meal times. She also confirmed pt' s anthropometrics, and stated that pt has not yet had a BM today. Pt is likely meeting lower end of estimated nutritional needs. Current diet is appropriate and adequate. Pt is not appropriate for nutrition education. Current Diet Order/ Nutrition Support Pureed, Boost BID, honey thick liquids Patient / S.O Can't verbalize diet edu Pertinent Medications colace, pepcid Pertinent Labs 02/15/17: Na 135 L, H/H 10.6 L /33.4 L, Ca 8.4 L Nutritional Hx/Data Height 1.7 m Height (Calculated Centimeters) 170.2 Current Weight (lbs) 67.132 kg Weight (Calculated Kilograms) 67.1 Weight (Calculated Grams) 61150.7 [place] Body Weight 148 lb, 67 kg % [place] Body Weight 100 Weight Status Approriate GI Symptoms GI Symptoms None Difficult in: Chewing Swallowing Food Allergies No Skin Integrity/Comment: Lino scale: 18; per RN, skin intact Current %PO Fair (50-74%) Estimated Nutritional Goals BEE in Kcals: Using Current wt Calories/Kcals/Kg 25-30 kcal/kg CBW for maintenance Kcals Calculated 7071-6947 kcal/day Protein: Using Current wt Protein g/k gm/kg CBW for geriatric maintenance Protein Calculated 67 gm/day Fluid: ml 1.7 L/day (25 ml/kg CBW for geriatric maintenance) Nutritional Problem 1. Problem Problem Chewing/swallowing difficulty Etiology related to possible cognitive limitations Signs/Symptoms: as evidenced by Hx of dementia , need for swallow evaluation, and current pureed diet w/ honey thick liquids food- texture modification. Malnutrition Alert Is there a minimum of two criteria No selected? Query Text:Check all the applicable criteria. A minimum of two criteria are recommended for diagnosis of either severe or non-severe malnutrition. Malnutrition Related to Morbid Obesity Malnutrition related to morbid obesity No Intervention/Recommendation Comments * Recommend continuing pureed, Boost BID, honey thick liquids per MD (oral supplement provides an additional 720 kcal/day and 30 gm protein/day) Expected Outcomes/Goals Expected Outcomes/Goals - Monitor appetite and PO intakes w/ goal of pt meeting at least 75% of estimated nutritional needs, labs trending WNL, normal GI function, and skin integrity/ wt maintenance within 7 days 02/20/17 16:06 Dietitian Notes by Clau Hand. Keily Addendum entered by Ma. Keily Hand 02/20/17 16:09: * Recommend continuing pureed, Boost BID, honey thick liquids per MD (oral supplement provides an additional 720 kcal/day and 30 gm protein/day) Original Note: Room/Bed: [address] Dietitian Recommendations * Recommend continuing pureed, Boost BID, honey thick liquids per MD Please refer to Nutrition Assessment for details. Initialized on 02/20/17 16:06 - END OF NOTE
--- NOTE | 2017-02-21 17:08 | Progress Notes ---
DATE: SUBJECTIVE: The patient was seen, chart reviewed, discussed with staff. The patient with a longstanding history of dementia, psychosis. On [id number], the patient is confused, not really answering any questions interview. Dr. Brown noting that the patient is with continued behaviors, impulsive, needing a lot of redirection. The patient needing a lot of care from staff. Medications reviewed. No side effects. ASSESSMENT: The patient remains confused, highly forgetful, somewhat bizarre presentation . PLAN: We will continue to monitor given the patient's ongoing symptoms, he is not safe for discharge. JOB# [id number]
[2017-02-22] MEDS: Potassium Chloride 20 mEq ER Tab PO SCH (09:42)
--- NOTE | 2017-02-22 12:22 | Progress Notes ---
DATE: SUBJECTIVE: The patient seen, chart reviewed, discussed with staff. The patient with history of dementia, psychosis, brought in from the Emergency Room with generalized weakness, altered, longstanding history of dementia, so remains withdrawn, confused. The patient's symptoms continue to be ongoing, not really answering any questions, still with continued behaviors, needing lot of redirection. Medications reviewed. No noted side effects. ASSESSMENT AND PLAN: The patient remains confused and disoriented. We will monitor and follow up. [facility]# [id number]
--- NOTE | 2017-02-22 17:49 | Internal Medicine Prog Note ---
Internal Medicine Subjective - Subjective Service Date: 02/22/17 Patient seen and examined:: with staff (HE FEELS BETTER,NO NAUSEA OR VOMITING.) Patient is:: awake, verbal, in bed Per staff patient has:: no adverse event Internal Medicine Objective - Results Result Diagrams: 02/15/17 06:05 02/15/17 06:05 Recent Labs: Laboratory Last Values WBC 6.1 Th/cmm (4.8-10.8) 02/15/17 06:05 RBC 4.95 Mil/cmm (3.80-5.80) 02/15/17 06:05 Hgb 10.6 gm/dL (12-16) L 02/15/17 06:05 Hct 33.5 % (41.0-60) L 02/15/17 06:05 MCV 67.6 fl (80-99) L 02/15/17 06:05 MCH 21.3 pg (27.0-31.0) L 02/15/17 06:05 MCHC Differential 31.5 pg (28.0-36.0) 02/15/17 06:05 RDW 24.7 % (11.5-20.0) H 02/15/17 06:05 Plt Count 340 Th/cmm (150-400) 02/15/17 06:05 MPV 7.6 fl 02/15/17 06:05 Neutrophils % 58.6 % (40.0-80.0) 02/15/17 06:05 Lymphocytes % 18.0 % (20.0-50.0) L 02/15/17 06:05 Monocytes % 12.8 % (2.0-10.0) H 02/15/17 06:05 Eosinophils % 9.3 % (0.0-5.0) H 02/15/17 06:05 Basophils % 1.3 % (0.0-2.0) 02/15/17 06:05 Sodium 135 mEq/L (136-145) L 02/15/17 06:05 Potassium 4.4 mEq/L (3.5-5.1) 02/15/17 06:05 Chloride 109 mEq/L (98-107) H 02/15/17 06:05 Carbon Dioxide 20.9 mEq/L (21.0-31.0) L 02/15/17 06:05 Anion Gap 9.5 (7.0-16.0) 02/15/17 06:05 BUN 18 mg/dL (7-25) 02/15/17 06:05 Creatinine 1.2 mg/dL (0.7-1.3) 02/15/17 06:05 Est GFR ( Amer) TNP 02/15/17 06:05 Est GFR (Non-Af Amer) TNP 02/15/17 06:05 BUN/Creatinine Ratio 15.0 02/15/17 06:05 Glucose 90 mg/dL (70-105) 02/15/17 06:05 Calcium 8.4 mg/dL (8.6-10.3) L 02/15/17 06:05 - Physical Exam Vitals and I&O: Vital Signs Temp 97.4 F 02/22/17 14:00 Pulse 102 02/22/17 14:00 Resp 20 02/22/17 14:00 BP 99/52 02/22/17 14:00 Pulse Ox 97 02/22/17 14:00 Active Medications: Current Medications Acetaminophen (Tylenol) 650 mg PO Q4H PRN PRN Reason: Pain (Mild) Stop: 04/14/17 16:44 Docusate Sodium (Colace) 100 mg PO DAILY [facility] Stop: 04/15/17 08:59 Last Admin: 02/22/17 09:42 Dose: 100 mg Donepezil HCl (Aricept) 10 mg PO DAILY [facility] Stop: 04/15/17 08:59 Last Admin: 02/22/17 09:42 Dose: 10 mg Famotidine (Pepcid) 20 mg PO DAILY [facility] Stop: 04/15/17 08:59 Last Admin: 02/22/17 09:42 Dose: 20 mg Furosemide (Lasix) 40 mg PO BID [facility] Stop: 04/14/17 16:59 Last Admin: 02/22/17 16:03 Dose: Not Given Memantine (Namenda) 5 mg PO DAILY [facility] Stop: 04/17/17 14:59 Last Admin: 02/22/17 09:42 Dose: 5 mg Ondansetron HCl (Zofran Odt) 4 mg PO Q4H PRN PRN Reason: Nausea / Vomiting Stop: 04/22/17 12:50 Last Admin: 02/21/17 13:25 Dose: 4 mg Potassium Chloride (Klor-Con) 20 meq PO DAILY [facility] Stop: 04/15/17 08:59 Last Admin: 02/22/17 09:42 Dose: 20 meq General: demented HEENT: NC/AT, PERRLA, EOMI, anicteric sclerae, throat clear Neck: Supple, No JVD, No thyromegaly, +2 carotid pulse wo bruit, No LAD Lungs: CTAB Cardiovascular: Normal S1, Normal S2, without murmur Abdomen: non-tender, non-distended Extremities: edema Neurological: no change - Procedures Procedures: Procedures Procedure Code Date BLOOD TRANSFUSION SERVICE 93298 02/11/17 TRANSFUSE NONAUT RED BLOOD CELLS IN PERIPH VEIN, PERC 89869U8 02/11/17 Internal Medicine Assmt/Plan - Assessment Assessment: 1.ANEMIA 2.ONOFRE. 3.DEMENTIA. - Plan Plan: CONTINUE ON CURRENT MEDICATION AND DIET. Nutritional Asmnt/Malnutr-PDOC - Dietary Evaluation Malnutrition Findings (Please click <Entered> for more info): Nutritional Asmnt/Malnutrition Start: 02/14/17 08: 28 Text: Status: Complete Freq: Document 02/20/17 15:57 MPENAFUERT (Rec: 02/20/17 16:08 MPENAFUERT JAMEL -FNS4) Nutritional Asmnt/Malnutrition Patient General Information Nutritional Screening Low Risk Diagnosis Psychosis Pertinent Medical Hx/Surgical Hx Dementia, GERD, atr fibr per MD notes Subjective Information Pt was seen and evaluated by ST for swallow eval on ; ST rec initiated and ongoing: pureed diet, honey thick liquids. RD called [facility] nursing station and spoke w/ pt's primary RN. RN statd that pt had a good appetite at lunch today and tolerated about 70% of Boost, apple juice, and pudding. She stated that she tries very hard to encourage pt to eat, as pt requires maximum assistance during meal times. She also confirmed pt' s anthropometrics, and stated that pt has not yet had a BM today. Pt is likely meeting lower end of estimated nutritional needs. Current diet is appropriate and adequate. Pt is not appropriate for nutrition education. Current Diet Order/ Nutrition Support Pureed, Boost BID, honey thick liquids Patient / S.O Can't verbalize diet edu Pertinent Medications colace, pepcid Pertinent Labs 02/15/17: Na 135 L, H/H 10.6 L /33.4 L, Ca 8.4 L Nutritional Hx/Data Height 1.7 m Height (Calculated Centimeters) 170.2 Current Weight (lbs) 67.132 kg Weight (Calculated Kilograms) 67.1 Weight (Calculated Grams) 21539.7 [place] Body Weight 148 lb, 67 kg % [place] Body Weight 100 Weight Status Approriate GI Symptoms GI Symptoms None Difficult in: Chewing Swallowing Food Allergies No Skin Integrity/Comment: Lino scale: 18; per RN, skin intact Current %PO Fair (50-74%) Estimated Nutritional Goals BEE in Kcals: Using Current wt Calories/Kcals/Kg 25-30 kcal/kg CBW for maintenance Kcals Calculated 1793-3808 kcal/day Protein: Using Current wt Protein g/k gm/kg CBW for geriatric maintenance Protein Calculated 67 gm/day Fluid: ml 1.7 L/day (25 ml/kg CBW for geriatric maintenance) Nutritional Problem 1. Problem Problem Chewing/swallowing difficulty Etiology related to possible cognitive limitations Signs/Symptoms: as evidenced by Hx of dementia , need for swallow evaluation, and current pureed diet w/ honey thick liquids food- texture modification. Malnutrition Alert Is there a minimum of two criteria No selected? Query Text:Check all the applicable criteria. A minimum of two criteria are recommended for diagnosis of either severe or non-severe malnutrition. Malnutrition Related to Morbid Obesity Malnutrition related to morbid obesity No Intervention/Recommendation Comments * Recommend continuing pureed, Boost BID, honey thick liquids per MD (oral supplement provides an additional 720 kcal/day and 30 gm protein/day) Expected Outcomes/Goals Expected Outcomes/Goals - Monitor appetite and PO intakes w/ goal of pt meeting at least 75% of estimated nutritional needs, labs trending WNL, normal GI function, and skin integrity/ wt maintenance within 7 days 02/20/17 16:06 Dietitian Notes by Clau Hand. Keily Addendum entered by Ma. Keily Hand 02/20/17 16:09: * Recommend continuing pureed, Boost BID, honey thick liquids per MD (oral supplement provides an additional 720 kcal/day and 30 gm protein/day) Original Note: Room/Bed: [address] Dietitian Recommendations * Recommend continuing pureed, Boost BID, honey thick liquids per MD Please refer to Nutrition Assessment for details. Initialized on 02/20/17 16:06 - END OF NOTE
[2017-02-23] MEDS: Potassium Chloride 20 mEq ER Tab PO SCH (09:51)
--- NOTE | 2017-02-23 17:29 | Internal Medicine Prog Note ---
Internal Medicine Subjective - Subjective Service Date: 02/23/17 Patient seen and examined:: without staff Patient is:: awake, verbal, in bed Per staff patient has:: no adverse event Internal Medicine Objective - Results Result Diagrams: 02/15/17 06:05 02/15/17 06:05 Recent Labs: Laboratory Last Values WBC 6.1 Th/cmm (4.8-10.8) 02/15/17 06:05 RBC 4.95 Mil/cmm (3.80-5.80) 02/15/17 06:05 Hgb 10.6 gm/dL (12-16) L 02/15/17 06:05 Hct 33.5 % (41.0-60) L 02/15/17 06:05 MCV 67.6 fl (80-99) L 02/15/17 06:05 MCH 21.3 pg (27.0-31.0) L 02/15/17 06:05 MCHC Differential 31.5 pg (28.0-36.0) 02/15/17 06:05 RDW 24.7 % (11.5-20.0) H 02/15/17 06:05 Plt Count 340 Th/cmm (150-400) 02/15/17 06:05 MPV 7.6 fl 02/15/17 06:05 Neutrophils % 58.6 % (40.0-80.0) 02/15/17 06:05 Lymphocytes % 18.0 % (20.0-50.0) L 02/15/17 06:05 Monocytes % 12.8 % (2.0-10.0) H 02/15/17 06:05 Eosinophils % 9.3 % (0.0-5.0) H 02/15/17 06:05 Basophils % 1.3 % (0.0-2.0) 02/15/17 06:05 Sodium 135 mEq/L (136-145) L 02/15/17 06:05 Potassium 4.4 mEq/L (3.5-5.1) 02/15/17 06:05 Chloride 109 mEq/L (98-107) H 02/15/17 06:05 Carbon Dioxide 20.9 mEq/L (21.0-31.0) L 02/15/17 06:05 Anion Gap 9.5 (7.0-16.0) 02/15/17 06:05 BUN 18 mg/dL (7-25) 02/15/17 06:05 Creatinine 1.2 mg/dL (0.7-1.3) 02/15/17 06:05 Est GFR ( Amer) TNP 02/15/17 06:05 Est GFR (Non-Af Amer) TNP 02/15/17 06:05 BUN/Creatinine Ratio 15.0 02/15/17 06:05 Glucose 90 mg/dL (70-105) 02/15/17 06:05 Calcium 8.4 mg/dL (8.6-10.3) L 02/15/17 06:05 - Physical Exam Vitals and I&O: Vital Signs Temp 98.1 F 02/23/17 15:25 Pulse 95 02/23/17 15:25 Resp 20 02/23/17 15:25 BP 109/59 02/23/17 15:25 Pulse Ox 95 02/23/17 15:25 Intake & Output 02/22/17 02/23/17 02/23/17 18:59 06:59 18:59 Intake Total 700 120 Balance 700 120 Intake: Oral 700 120 Other: # Voids 3 3 # Bowel Movements 0 Active Medications: Current Medications Acetaminophen (Tylenol) 650 mg PO Q4H PRN PRN Reason: Pain (Mild) Stop: 04/14/17 16:44 Docusate Sodium (Colace) 100 mg PO DAILY [facility] Stop: 04/15/17 08:59 Last Admin: 02/23/17 09:51 Dose: Not Given Donepezil HCl (Aricept) 10 mg PO DAILY [facility] Stop: 04/15/17 08:59 Last Admin: 02/23/17 09:51 Dose: 10 mg Famotidine (Pepcid) 20 mg PO DAILY [facility] Stop: 04/15/17 08:59 Last Admin: 02/23/17 09:51 Dose: 20 mg Furosemide (Lasix) 40 mg PO BID [facility] Stop: 04/14/17 16:59 Last Admin: 02/23/17 16:18 Dose: Not Given Memantine (Namenda) 5 mg PO BID [facility] Stop: 04/24/17 16:59 Last Admin: 02/23/17 16:33 Dose: 5 mg Ondansetron HCl (Zofran Odt) 4 mg PO Q4H PRN PRN Reason: Nausea / Vomiting Stop: 04/22/17 12:50 Last Admin: 02/21/17 13:25 Dose: 4 mg Potassium Chloride (Klor-Con) 20 meq PO DAILY [facility] Stop: 04/15/17 08:59 Last Admin: 02/23/17 09:51 Dose: 20 meq General: demented HEENT: NC/AT, PERRLA, EOMI, anicteric sclerae, throat clear Neck: Supple, No JVD, No thyromegaly, +2 carotid pulse wo bruit, No LAD Lungs: CTAB Cardiovascular: Normal S1, Normal S2, without murmur Abdomen: non-tender, non-distended Extremities: edema Neurological: no change - Procedures Procedures: Procedures Procedure Code Date BLOOD TRANSFUSION SERVICE 77441 02/11/17 TRANSFUSE NONAUT RED BLOOD CELLS IN PERIPH VEIN, PERC 34868N5 02/11/17 Internal Medicine Assmt/Plan - Assessment Assessment: 1.ANEMIA 2.ONOFRE. 3.DEMENTIA. - Plan Plan: CONTINUE ON CURRENT MEDICATION AND DIET. Nutritional Asmnt/Malnutr-PDOC - Dietary Evaluation Malnutrition Findings (Please click <Entered> for more info): Nutritional Asmnt/Malnutrition Start: 02/14/17 08: 28 Text: Status: Complete Freq: Document 02/20/17 15:57 MPENAFULISA (Rec: 02/20/17 16:08 MPENAFUERT JAMEL -FNS4) Nutritional Asmnt/Malnutrition Patient General Information Nutritional Screening Low Risk Diagnosis Psychosis Pertinent Medical Hx/Surgical Hx Dementia, GERD, atr fibr per MD notes Subjective Information Pt was seen and evaluated by ST for swallow eval on ; ST rec initiated and ongoing: pureed diet, honey thick liquids. RD called [facility] psych nursing station and spoke w/ pt's primary RN. RN statd that pt had a good appetite at lunch today and tolerated about 70% of Boost, apple juice, and pudding. She stated that she tries very hard to encourage pt to eat, as pt requires maximum assistance during meal times. She also confirmed pt' s anthropometrics, and stated that pt has not yet had a BM today. Pt is likely meeting lower end of estimated nutritional needs. Current diet is appropriate and adequate. Pt is not appropriate for nutrition education. Current Diet Order/ Nutrition Support Pureed, Boost BID, honey thick liquids Patient / S.O Can't verbalize diet edu Pertinent Medications colace, pepcid Pertinent Labs 02/15/17: Na 135 L, H/H 10.6 L /33.4 L, Ca 8.4 L Nutritional Hx/Data Height 1.7 m Height (Calculated Centimeters) 170.2 Current Weight (lbs) 67.132 kg Weight (Calculated Kilograms) 67.1 Weight (Calculated Grams) 20119.7 [place] Body Weight 148 lb, 67 kg % [place] Body Weight 100 Weight Status Approriate GI Symptoms GI Symptoms None Difficult in: Chewing Swallowing Food Allergies No Skin Integrity/Comment: Lino scale: 18; per RN, skin intact Current %PO Fair (50-74%) Estimated Nutritional Goals BEE in Kcals: Using Current wt Calories/Kcals/Kg 25-30 kcal/kg CBW for maintenance Kcals Calculated 6369-7840 kcal/day Protein: Using Current wt Protein g/k gm/kg CBW for geriatric maintenance Protein Calculated 67 gm/day Fluid: ml 1.7 L/day (25 ml/kg CBW for geriatric maintenance) Nutritional Problem 1. Problem Problem Chewing/swallowing difficulty Etiology related to possible cognitive limitations Signs/Symptoms: as evidenced by Hx of dementia , need for swallow evaluation, and current pureed diet w/ honey thick liquids food- texture modification. Malnutrition Alert Is there a minimum of two criteria No selected? Query Text:Check all the applicable criteria. A minimum of two criteria are recommended for diagnosis of either severe or non-severe malnutrition. Malnutrition Related to Morbid Obesity Malnutrition related to morbid obesity No Intervention/Recommendation Comments * Recommend continuing pureed, Boost BID, honey thick liquids per MD (oral supplement provides an additional 720 kcal/day and 30 gm protein/day) Expected Outcomes/Goals Expected Outcomes/Goals - Monitor appetite and PO intakes w/ goal of pt meeting at least 75% of estimated nutritional needs, labs trending WNL, normal GI function, and skin integrity/ wt maintenance within 7 days 02/20/17 16:06 Dietitian Notes by Clau Hand. Keily Addendum entered by Ma. Keily Hand 02/20/17 16:09: * Recommend continuing pureed, Boost BID, honey thick liquids per MD (oral supplement provides an additional 720 kcal/day and 30 gm protein/day) Original Note: Room/Bed: [id number] Dietitian Recommendations * Recommend continuing pureed, Boost BID, honey thick liquids per MD Please refer to Nutrition Assessment for details. Initialized on 02/20/17 16:06 - END OF NOTE
--- NOTE | 2017-02-24 00:54 | Progress Notes ---
DATE: 02/23/2017 Case was discussed with staff of the patient, reviewed records. The patient continues to stay in bed. In general, needs help. Continues to be unpredictable, impulsive, confused, demented, unable to make safe plan for self-care. He is sleeping well, eating well. Compliant with the medication with no side effects. No sedation, no nausea, no extrapyramidal symptoms. He is not on any antipsychotics. I will be increasing Namenda to 5 mg twice a day. We will continue to work with the patient in group therapy, milieu therapy, and adjust medication as needed. JOB# [id number]
[2017-02-24] MEDS: Potassium Chloride 20 mEq ER Tab PO SCH (09:21)
--- NOTE | 2017-02-24 10:46 | Internal Medicine Prog Note ---
Internal Medicine Subjective - Subjective Service Date: 02/24/17 Patient seen and examined:: with staff (he is eating well,no nausea or vomiting. ) Patient is:: awake, verbal, in bed Per staff patient has:: no adverse event Internal Medicine Objective - Results Result Diagrams: 02/15/17 06:05 02/15/17 06:05 Recent Labs: Laboratory Last Values WBC 6.1 Th/cmm (4.8-10.8) 02/15/17 06:05 RBC 4.95 Mil/cmm (3.80-5.80) 02/15/17 06:05 Hgb 10.6 gm/dL (12-16) L 02/15/17 06:05 Hct 33.5 % (41.0-60) L 02/15/17 06:05 MCV 67.6 fl (80-99) L 02/15/17 06:05 MCH 21.3 pg (27.0-31.0) L 02/15/17 06:05 MCHC Differential 31.5 pg (28.0-36.0) 02/15/17 06:05 RDW 24.7 % (11.5-20.0) H 02/15/17 06:05 Plt Count 340 Th/cmm (150-400) 02/15/17 06:05 MPV 7.6 fl 02/15/17 06:05 Neutrophils % 58.6 % (40.0-80.0) 02/15/17 06:05 Lymphocytes % 18.0 % (20.0-50.0) L 02/15/17 06:05 Monocytes % 12.8 % (2.0-10.0) H 02/15/17 06:05 Eosinophils % 9.3 % (0.0-5.0) H 02/15/17 06:05 Basophils % 1.3 % (0.0-2.0) 02/15/17 06:05 Sodium 135 mEq/L (136-145) L 02/15/17 06:05 Potassium 4.4 mEq/L (3.5-5.1) 02/15/17 06:05 Chloride 109 mEq/L (98-107) H 02/15/17 06:05 Carbon Dioxide 20.9 mEq/L (21.0-31.0) L 02/15/17 06:05 Anion Gap 9.5 (7.0-16.0) 02/15/17 06:05 BUN 18 mg/dL (7-25) 02/15/17 06:05 Creatinine 1.2 mg/dL (0.7-1.3) 02/15/17 06:05 Est GFR ( Amer) TNP 02/15/17 06:05 Est GFR (Non-Af Amer) TNP 02/15/17 06:05 BUN/Creatinine Ratio 15.0 02/15/17 06:05 Glucose 90 mg/dL (70-105) 02/15/17 06:05 Calcium 8.4 mg/dL (8.6-10.3) L 02/15/17 06:05 - Physical Exam Vitals and I&O: Vital Signs Temp 98.1 F 02/24/17 06:36 Pulse 98 02/24/17 06:36 Resp 19 02/24/17 06:36 BP 116/49 02/24/17 06:36 Pulse Ox 95 02/24/17 06:36 Intake & Output 02/23/17 02/24/17 02/24/17 18:59 06:59 18:59 Intake Total 700 180 Balance 700 180 Intake: Oral 700 180 Other: # Voids 4 2 # Bowel Movements 2 1 Active Medications: Current Medications Acetaminophen (Tylenol) 650 mg PO Q4H PRN PRN Reason: Pain (Mild) Stop: 04/14/17 16:44 Docusate Sodium (Colace) 100 mg PO DAILY [facility] Stop: 04/15/17 08:59 Last Admin: 02/24/17 09:21 Dose: Not Given Donepezil HCl (Aricept) 10 mg PO DAILY [facility] Stop: 04/15/17 08:59 Last Admin: 02/24/17 09:21 Dose: 10 mg Famotidine (Pepcid) 20 mg PO DAILY [facility] Stop: 04/15/17 08:59 Last Admin: 02/24/17 09:21 Dose: 20 mg Furosemide (Lasix) 40 mg PO BID [facility] Stop: 04/14/17 16:59 Last Admin: 02/24/17 09:21 Dose: Not Given Memantine (Namenda) 5 mg PO BID [facility] Stop: 04/24/17 16:59 Last Admin: 02/24/17 09:21 Dose: 5 mg Ondansetron HCl (Zofran Odt) 4 mg PO Q4H PRN PRN Reason: Nausea / Vomiting Stop: 04/22/17 12:50 Last Admin: 02/21/17 13:25 Dose: 4 mg Potassium Chloride (Klor-Con) 20 meq PO DAILY [facility] Stop: 04/15/17 08:59 Last Admin: 02/24/17 09:21 Dose: 20 meq General: demented HEENT: NC/AT, PERRLA, EOMI, anicteric sclerae, throat clear Neck: Supple, No JVD, No thyromegaly, +2 carotid pulse wo bruit, No LAD Lungs: CTAB Cardiovascular: Normal S1, Normal S2, without murmur Abdomen: non-tender, non-distended Extremities: edema Neurological: no change - Procedures Procedures: Procedures Procedure Code Date BLOOD TRANSFUSION SERVICE 09871 02/11/17 TRANSFUSE NONAUT RED BLOOD CELLS IN PERIPH VEIN, PERC 78855E1 02/11/17 Internal Medicine Assmt/Plan - Assessment Assessment: 1.ANEMIA 2.ONOFRE. 3.DEMENTIA. - Plan Plan: CONTINUE ON CURRENT MEDICATION AND DIET. Nutritional Asmnt/Malnutr-PDOC - Dietary Evaluation Malnutrition Findings (Please click <Entered> for more info): Nutritional Asmnt/Malnutrition Start: 02/14/17 08: 28 Text: Status: Complete Freq: Document 02/20/17 15:57 MPENAFUERT (Rec: 02/20/17 16:08 MPENAFUERT JAMEL -FNS4) Nutritional Asmnt/Malnutrition Patient General Information Nutritional Screening Low Risk Diagnosis Psychosis Pertinent Medical Hx/Surgical Hx Dementia, GERD, atr fibr per MD notes Subjective Information Pt was seen and evaluated by ST for swallow eval on ; ST rec initiated and ongoing: pureed diet, honey thick liquids. RD called [facility] psych nursing station and spoke w/ pt's primary RN. RN statd that pt had a good appetite at lunch today and tolerated about 70% of Boost, apple juice, and pudding. She stated that she tries very hard to encourage pt to eat, as pt requires maximum assistance during meal times. She also confirmed pt' s anthropometrics, and stated that pt has not yet had a BM today. Pt is likely meeting lower end of estimated nutritional needs. Current diet is appropriate and adequate. Pt is not appropriate for nutrition education. Current Diet Order/ Nutrition Support Pureed, Boost BID, honey thick liquids Patient / S.O Can't verbalize diet edu Pertinent Medications colace, pepcid Pertinent Labs 02/15/17: Na 135 L, H/H 10.6 L /33.4 L, Ca 8.4 L Nutritional Hx/Data Height 1.7 m Height (Calculated Centimeters) 170.2 Current Weight (lbs) 67.132 kg Weight (Calculated Kilograms) 67.1 Weight (Calculated Grams) 38470.7 [place] Body Weight 148 lb, 67 kg % [place] Body Weight 100 Weight Status Approriate GI Symptoms GI Symptoms None Difficult in: Chewing Swallowing Food Allergies No Skin Integrity/Comment: Lino scale: 18; per RN, skin intact Current %PO Fair (50-74%) Estimated Nutritional Goals BEE in Kcals: Using Current wt Calories/Kcals/Kg 25-30 kcal/kg CBW for maintenance Kcals Calculated 0406-7336 kcal/day Protein: Using Current wt Protein g/k gm/kg CBW for geriatric maintenance Protein Calculated 67 gm/day Fluid: ml 1.7 L/day (25 ml/kg CBW for geriatric maintenance) Nutritional Problem 1. Problem Problem Chewing/swallowing difficulty Etiology related to possible cognitive limitations Signs/Symptoms: as evidenced by Hx of dementia , need for swallow evaluation, and current pureed diet w/ honey thick liquids food- texture modification. Malnutrition Alert Is there a minimum of two criteria No selected? Query Text:Check all the applicable criteria. A minimum of two criteria are recommended for diagnosis of either severe or non-severe malnutrition. Malnutrition Related to Morbid Obesity Malnutrition related to morbid obesity No Intervention/Recommendation Comments * Recommend continuing pureed, Boost BID, honey thick liquids per MD (oral supplement provides an additional 720 kcal/day and 30 gm protein/day) Expected Outcomes/Goals Expected Outcomes/Goals - Monitor appetite and PO intakes w/ goal of pt meeting at least 75% of estimated nutritional needs, labs trending WNL, normal GI function, and skin integrity/ wt maintenance within 7 days 02/20/17 16:06 Dietitian Notes by Clau Hand. Keily Addendum entered by Ma. Keily Hand 02/20/17 16:09: * Recommend continuing pureed, Boost BID, honey thick liquids per MD (oral supplement provides an additional 720 kcal/day and 30 gm protein/day) Original Note: Room/Bed: [address] Dietitian Recommendations * Recommend continuing pureed, Boost BID, honey thick liquids per MD Please refer to Nutrition Assessment for details. Initialized on 02/20/17 16:06 - END OF NOTE
--- NOTE | 2017-02-25 00:12 | Progress Notes ---
DATE: 02/24/2017 The case was discussed with staff of the patient. The patient is being fed by staff. He is still unpredictable, impulsive, needing redirection, confused, demented, unable to make safe plan for self-care. The staff said that he appears to be dehydrated and asked him to make sure he is being fed and so far, I have him only on Aricept and Namenda and avoiding any other medication because of swallowing problems and the staff told me that he did have a sleep study. So, I will defer this decision to Dr. Tejada and so far, we will continue to work with the patient in group therapy, milieu therapy, and adjust medications as needed. JOB# [id number]
[2017-02-25] MEDS: Potassium Chloride 20 mEq ER Tab PO SCH (10:00)
--- NOTE | 2017-02-25 10:40 | Internal Medicine Prog Note ---
Internal Medicine Subjective - Subjective Service Date: 02/25/17 Patient seen and examined:: with staff Patient is:: awake, verbal, in bed Per staff patient has:: no adverse event Internal Medicine Objective - Results Result Diagrams: 02/15/17 06:05 02/15/17 06:05 Recent Labs: Laboratory Last Values WBC 6.1 Th/cmm (4.8-10.8) 02/15/17 06:05 RBC 4.95 Mil/cmm (3.80-5.80) 02/15/17 06:05 Hgb 10.6 gm/dL (12-16) L 02/15/17 06:05 Hct 33.5 % (41.0-60) L 02/15/17 06:05 MCV 67.6 fl (80-99) L 02/15/17 06:05 MCH 21.3 pg (27.0-31.0) L 02/15/17 06:05 MCHC Differential 31.5 pg (28.0-36.0) 02/15/17 06:05 RDW 24.7 % (11.5-20.0) H 02/15/17 06:05 Plt Count 340 Th/cmm (150-400) 02/15/17 06:05 MPV 7.6 fl 02/15/17 06:05 Neutrophils % 58.6 % (40.0-80.0) 02/15/17 06:05 Lymphocytes % 18.0 % (20.0-50.0) L 02/15/17 06:05 Monocytes % 12.8 % (2.0-10.0) H 02/15/17 06:05 Eosinophils % 9.3 % (0.0-5.0) H 02/15/17 06:05 Basophils % 1.3 % (0.0-2.0) 02/15/17 06:05 Sodium 135 mEq/L (136-145) L 02/15/17 06:05 Potassium 4.4 mEq/L (3.5-5.1) 02/15/17 06:05 Chloride 109 mEq/L (98-107) H 02/15/17 06:05 Carbon Dioxide 20.9 mEq/L (21.0-31.0) L 02/15/17 06:05 Anion Gap 9.5 (7.0-16.0) 02/15/17 06:05 BUN 18 mg/dL (7-25) 02/15/17 06:05 Creatinine 1.2 mg/dL (0.7-1.3) 02/15/17 06:05 Est GFR ( Amer) TNP 02/15/17 06:05 Est GFR (Non-Af Amer) TNP 02/15/17 06:05 BUN/Creatinine Ratio 15.0 02/15/17 06:05 Glucose 90 mg/dL (70-105) 02/15/17 06:05 Calcium 8.4 mg/dL (8.6-10.3) L 02/15/17 06:05 - Physical Exam Vitals and I&O: Vital Signs Temp 98.4 F 02/25/17 07:02 Pulse 119 02/25/17 07:02 Resp 18 02/25/17 07:02 BP 122/72 02/25/17 07:02 Pulse Ox 94 02/25/17 07:02 Intake & Output 02/24/17 02/25/17 02/25/17 18:59 06:59 18:59 Intake Total 900 120 Balance 900 120 Intake: Oral 900 120 Other: # Voids 4 1 3 # Bowel Movements 2 0 Active Medications: Current Medications Acetaminophen (Tylenol) 650 mg PO Q4H PRN PRN Reason: Pain (Mild) Stop: 04/14/17 16:44 Docusate Sodium (Colace) 100 mg PO DAILY [facility] Stop: 04/15/17 08:59 Last Admin: 02/25/17 10:05 Dose: 100 mg Donepezil HCl (Aricept) 10 mg PO DAILY [facility] Stop: 04/15/17 08:59 Last Admin: 02/25/17 10:05 Dose: 10 mg Famotidine (Pepcid) 20 mg PO DAILY [facility] Stop: 04/15/17 08:59 Last Admin: 02/25/17 10:07 Dose: 20 mg Furosemide (Lasix) 40 mg PO BID [facility] Stop: 04/14/17 16:59 Last Admin: 02/24/17 09:21 Dose: Not Given Memantine (Namenda) 5 mg PO BID [facility] Stop: 04/24/17 16:59 Last Admin: 02/25/17 10:06 Dose: 5 mg Ondansetron HCl (Zofran Odt) 4 mg PO Q4H PRN PRN Reason: Nausea / Vomiting Stop: 04/22/17 12:50 Last Admin: 02/21/17 13:25 Dose: 4 mg Potassium Chloride (Klor-Con) 20 meq PO DAILY [facility] Stop: 04/15/17 08:59 Last Admin: 02/25/17 10:00 Dose: 20 meq General: demented HEENT: NC/AT, PERRLA, EOMI, anicteric sclerae, throat clear Neck: Supple, No JVD, No thyromegaly, +2 carotid pulse wo bruit, No LAD Lungs: CTAB Cardiovascular: Normal S1, Normal S2, without murmur Abdomen: non-tender, non-distended Extremities: edema Neurological: no change - Procedures Procedures: Procedures Procedure Code Date BLOOD TRANSFUSION SERVICE 05576 02/11/17 TRANSFUSE NONAUT RED BLOOD CELLS IN PERIPH VEIN, PERC 36860W1 02/11/17 Internal Medicine Assmt/Plan - Assessment Assessment: 1.ANEMIA 2.ONOFRE. 3.DEMENTIA. - Plan Plan: CONTINUE ON CURRENT MEDICATION AND DIET. Nutritional Asmnt/Malnutr-PDOC - Dietary Evaluation Malnutrition Findings (Please click <Entered> for more info): Nutritional Asmnt/Malnutrition Start: 02/14/17 08: 28 Text: Status: Complete Freq: Document 02/20/17 15:57 MPENAFUERT (Rec: 02/20/17 16:08 MPENAFUERT JAMEL -FNS4) Nutritional Asmnt/Malnutrition Patient General Information Nutritional Screening Low Risk Diagnosis Psychosis Pertinent Medical Hx/Surgical Hx Dementia, GERD, atr fibr per MD notes Subjective Information Pt was seen and evaluated by ST for swallow eval on ; ST rec initiated and ongoing: pureed diet, honey thick liquids. RD called [facility] psych nursing station and spoke w/ pt's primary RN. RN statd that pt had a good appetite at lunch today and tolerated about 70% of Boost, apple juice, and pudding. She stated that she tries very hard to encourage pt to eat, as pt requires maximum assistance during meal times. She also confirmed pt' s anthropometrics, and stated that pt has not yet had a BM today. Pt is likely meeting lower end of estimated nutritional needs. Current diet is appropriate and adequate. Pt is not appropriate for nutrition education. Current Diet Order/ Nutrition Support Pureed, Boost BID, honey thick liquids Patient / S.O Can't verbalize diet edu Pertinent Medications colace, pepcid Pertinent Labs 02/15/17: Na 135 L, H/H 10.6 L /33.4 L, Ca 8.4 L Nutritional Hx/Data Height 1.7 m Height (Calculated Centimeters) 170.2 Current Weight (lbs) 67.132 kg Weight (Calculated Kilograms) 67.1 Weight (Calculated Grams) 24175.7 [place] Body Weight 148 lb, 67 kg % [place] Body Weight 100 Weight Status Approriate GI Symptoms GI Symptoms None Difficult in: Chewing Swallowing Food Allergies No Skin Integrity/Comment: Lino scale: 18; per RN, skin intact Current %PO Fair (50-74%) Estimated Nutritional Goals BEE in Kcals: Using Current wt Calories/Kcals/Kg 25-30 kcal/kg CBW for maintenance Kcals Calculated 2673-7446 kcal/day Protein: Using Current wt Protein g/k gm/kg CBW for geriatric maintenance Protein Calculated 67 gm/day Fluid: ml 1.7 L/day (25 ml/kg CBW for geriatric maintenance) Nutritional Problem 1. Problem Problem Chewing/swallowing difficulty Etiology related to possible cognitive limitations Signs/Symptoms: as evidenced by Hx of dementia , need for swallow evaluation, and current pureed diet w/ honey thick liquids food- texture modification. Malnutrition Alert Is there a minimum of two criteria No selected? Query Text:Check all the applicable criteria. A minimum of two criteria are recommended for diagnosis of either severe or non-severe malnutrition. Malnutrition Related to Morbid Obesity Malnutrition related to morbid obesity No Intervention/Recommendation Comments * Recommend continuing pureed, Boost BID, honey thick liquids per MD (oral supplement provides an additional 720 kcal/day and 30 gm protein/day) Expected Outcomes/Goals Expected Outcomes/Goals - Monitor appetite and PO intakes w/ goal of pt meeting at least 75% of estimated nutritional needs, labs trending WNL, normal GI function, and skin integrity/ wt maintenance within 7 days 02/20/17 16:06 Dietitian Notes by Clau Hand. Keily Addendum entered by Ma. Keily Hand 02/20/17 16:09: * Recommend continuing pureed, Boost BID, honey thick liquids per MD (oral supplement provides an additional 720 kcal/day and 30 gm protein/day) Original Note: Room/Bed: [id number] Dietitian Recommendations * Recommend continuing pureed, Boost BID, honey thick liquids per MD Please refer to Nutrition Assessment for details. Initialized on 02/20/17 16:06 - END OF NOTE
--- NOTE | 2017-02-25 20:58 | Progress Notes ---
DATE: 02/25/2017 Case was discussed with staff and reviewed records. The patient is mostly staying in bed. He needs help with feeding because he is shocked hassles and aspiration hassles. He is on pureed diet. I am avoiding antipsychotics; however, his behavior is improving, that is why I do not want him to have any extrapyramidal symptoms or make his feeding much more difficult. We will continue to work with the patient in group therapy, milieu therapy, adjust medication as needed. JOB# [id number]
[2017-02-26] MEDS: Potassium Chloride 20 mEq ER Tab PO SCH (09:35)
--- NOTE | 2017-02-26 19:23 | Internal Medicine Prog Note ---
Internal Medicine Subjective - Subjective Service Date: 02/26/17 Patient seen and examined:: without staff Patient is:: awake, verbal, in bed Per staff patient has:: no adverse event Internal Medicine Objective - Results Result Diagrams: 02/15/17 06:05 02/15/17 06:05 Recent Labs: Laboratory Last Values WBC 6.1 Th/cmm (4.8-10.8) 02/15/17 06:05 RBC 4.95 Mil/cmm (3.80-5.80) 02/15/17 06:05 Hgb 10.6 gm/dL (12-16) L 02/15/17 06:05 Hct 33.5 % (41.0-60) L 02/15/17 06:05 MCV 67.6 fl (80-99) L 02/15/17 06:05 MCH 21.3 pg (27.0-31.0) L 02/15/17 06:05 MCHC Differential 31.5 pg (28.0-36.0) 02/15/17 06:05 RDW 24.7 % (11.5-20.0) H 02/15/17 06:05 Plt Count 340 Th/cmm (150-400) 02/15/17 06:05 MPV 7.6 fl 02/15/17 06:05 Neutrophils % 58.6 % (40.0-80.0) 02/15/17 06:05 Lymphocytes % 18.0 % (20.0-50.0) L 02/15/17 06:05 Monocytes % 12.8 % (2.0-10.0) H 02/15/17 06:05 Eosinophils % 9.3 % (0.0-5.0) H 02/15/17 06:05 Basophils % 1.3 % (0.0-2.0) 02/15/17 06:05 Sodium 135 mEq/L (136-145) L 02/15/17 06:05 Potassium 4.4 mEq/L (3.5-5.1) 02/15/17 06:05 Chloride 109 mEq/L (98-107) H 02/15/17 06:05 Carbon Dioxide 20.9 mEq/L (21.0-31.0) L 02/15/17 06:05 Anion Gap 9.5 (7.0-16.0) 02/15/17 06:05 BUN 18 mg/dL (7-25) 02/15/17 06:05 Creatinine 1.2 mg/dL (0.7-1.3) 02/15/17 06:05 Est GFR ( Amer) TNP 02/15/17 06:05 Est GFR (Non-Af Amer) TNP 02/15/17 06:05 BUN/Creatinine Ratio 15.0 02/15/17 06:05 Glucose 90 mg/dL (70-105) 02/15/17 06:05 Calcium 8.4 mg/dL (8.6-10.3) L 02/15/17 06:05 - Physical Exam Vitals and I&O: Vital Signs Temp 98.4 F 02/26/17 14:00 Pulse 109 02/26/17 14:00 Resp 20 02/26/17 14:00 BP 132/52 02/26/17 14:00 Pulse Ox 96 02/26/17 14:00 Intake & Output 02/26/17 02/26/17 02/27/17 06:59 18:59 06:59 Intake Total 120 1600 Balance 120 1600 Intake: Oral 120 1600 Other: # Voids 3 4 # Bowel Movements 2 Active Medications: Current Medications Acetaminophen (Tylenol) 650 mg PO Q4H PRN PRN Reason: Pain (Mild) Stop: 04/14/17 16:44 Docusate Sodium (Colace) 100 mg PO DAILY [facility] Stop: 04/15/17 08:59 Last Admin: 02/25/17 10:05 Dose: 100 mg Donepezil HCl (Aricept) 10 mg PO DAILY [facility] Stop: 04/15/17 08:59 Last Admin: 02/26/17 09:35 Dose: 10 mg Famotidine (Pepcid) 20 mg PO DAILY [facility] Stop: 04/15/17 08:59 Last Admin: 02/26/17 09:35 Dose: 20 mg Furosemide (Lasix) 40 mg PO BID [facility] Stop: 04/14/17 16:59 Last Admin: 02/26/17 09:25 Dose: Not Given Memantine (Namenda) 5 mg PO BID [facility] Stop: 04/24/17 16:59 Last Admin: 02/26/17 09:35 Dose: 5 mg Ondansetron HCl (Zofran Odt) 4 mg PO Q4H PRN PRN Reason: Nausea / Vomiting Stop: 04/22/17 12:50 Last Admin: 02/21/17 13:25 Dose: 4 mg Potassium Chloride (Klor-Con) 20 meq PO DAILY [facility] Stop: 04/15/17 08:59 Last Admin: 02/26/17 09:35 Dose: 20 meq General: demented HEENT: NC/AT, PERRLA, EOMI, anicteric sclerae, throat clear Neck: Supple, No JVD, No thyromegaly, +2 carotid pulse wo bruit, No LAD Lungs: CTAB Cardiovascular: Normal S1, Normal S2, without murmur Abdomen: non-tender, non-distended Extremities: edema Neurological: no change - Procedures Procedures: Procedures Procedure Code Date BLOOD TRANSFUSION SERVICE 57108 02/11/17 TRANSFUSE NONAUT RED BLOOD CELLS IN PERIPH VEIN, PERC 71417I8 02/11/17 Internal Medicine Assmt/Plan - Assessment Assessment: 1.ANEMIA 2.ONOFRE. 3.DEMENTIA. - Plan Plan: CONTINUE ON CURRENT MEDICATION AND DIET. Nutritional Asmnt/Malnutr-PDOC - Dietary Evaluation Malnutrition Findings (Please click <Entered> for more info): Nutritional Asmnt/Malnutrition Start: 02/14/17 08: 28 Text: Status: Complete Freq: Document 02/20/17 15:57 MPENAFULISA (Rec: 02/20/17 16:08 MPENAFUERT JAMEL -[id number]) Nutritional Asmnt/Malnutrition Patient General Information Nutritional Screening Low Risk Diagnosis Psychosis Pertinent Medical Hx/Surgical Hx Dementia, GERD, atr fibr per MD notes Subjective Information Pt was seen and evaluated by ST for swallow eval on ; ST rec initiated and ongoing: pureed diet, honey thick liquids. RD called [facility] psych nursing station and spoke w/ pt's primary RN. RN statd that pt had a good appetite at lunch today and tolerated about 70% of Boost, apple juice, and pudding. She stated that she tries very hard to encourage pt to eat, as pt requires maximum assistance during meal times. She also confirmed pt' s anthropometrics, and stated that pt has not yet had a BM today. Pt is likely meeting lower end of estimated nutritional needs. Current diet is appropriate and adequate. Pt is not appropriate for nutrition education. Current Diet Order/ Nutrition Support Pureed, Boost BID, honey thick liquids Patient / S.O Can't verbalize diet edu Pertinent Medications colace, pepcid Pertinent Labs 02/15/17: Na 135 L, H/H 10.6 L /33.4 L, Ca 8.4 L Nutritional Hx/Data Height 1.7 m Height (Calculated Centimeters) 170.2 Current Weight (lbs) 67.132 kg Weight (Calculated Kilograms) 67.1 Weight (Calculated Grams) 99544.7 [place] Body Weight 148 lb, 67 kg % [place] Body Weight 100 Weight Status Approriate GI Symptoms GI Symptoms None Difficult in: Chewing Swallowing Food Allergies No Skin Integrity/Comment: Lino scale: 18; per RN, skin intact Current %PO Fair (50-74%) Estimated Nutritional Goals BEE in Kcals: Using Current wt Calories/Kcals/Kg 25-30 kcal/kg CBW for maintenance Kcals Calculated 1870-3198 kcal/day Protein: Using Current wt Protein g/k gm/kg CBW for geriatric maintenance Protein Calculated 67 gm/day Fluid: ml 1.7 L/day (25 ml/kg CBW for geriatric maintenance) Nutritional Problem 1. Problem Problem Chewing/swallowing difficulty Etiology related to possible cognitive limitations Signs/Symptoms: as evidenced by Hx of dementia , need for swallow evaluation, and current pureed diet w/ honey thick liquids food- texture modification. Malnutrition Alert Is there a minimum of two criteria No selected? Query Text:Check all the applicable criteria. A minimum of two criteria are recommended for diagnosis of either severe or non-severe malnutrition. Malnutrition Related to Morbid Obesity Malnutrition related to morbid obesity No Intervention/Recommendation Comments * Recommend continuing pureed, Boost BID, honey thick liquids per MD (oral supplement provides an additional 720 kcal/day and 30 gm protein/day) Expected Outcomes/Goals Expected Outcomes/Goals - Monitor appetite and PO intakes w/ goal of pt meeting at least 75% of estimated nutritional needs, labs trending WNL, normal GI function, and skin integrity/ wt maintenance within 7 days 02/20/17 16:06 Dietitian Notes by Clau Hand. Keily Addendum entered by Ma. Keily Hand 02/20/17 16:09: * Recommend continuing pureed, Boost BID, honey thick liquids per MD (oral supplement provides an additional 720 kcal/day and 30 gm protein/day) Original Note: Room/Bed: [id number] Dietitian Recommendations * Recommend continuing pureed, Boost BID, honey thick liquids per MD Please refer to Nutrition Assessment for details. Initialized on 02/20/17 16:06 - END OF NOTE
--- NOTE | 2017-02-27 00:09 | Progress Notes ---
DATE: 02/26/2017 Case was discussed with staff of patient, reviewed records. The patient is improving according to the staff. He is able to eat better, sleeping better. He is compliant with the medication with no side effects, no sedation or nausea. He is on Aricept and Namenda with no side effects, no sedation, no nausea. We will continue to work with the patient in group therapy, milieu therapy, and adjust the medication as needed. JOB# [id number]
[2017-02-27] MEDS: Potassium Chloride 20 mEq ER Tab PO SCH (08:28)
--- NOTE | 2017-02-27 14:45 | Discharge Summary ---
DATE OF DISCHARGE: 02/27/2017 IDENTIFYING INFORMATION: The patient is an 86-year-old male. HISTORY OF PRESENT ILLNESS: The patient was sent from [facility] because of altered mental status ____ and agitation. He has a longstanding history of dementia and psychosis. He was found to be having generalized weakness, altered level of consciousness. Initial workup of the patient was negative. He was hydrated and then transferred to the psych unit. COURSE IN THE HOSPITAL: This patient is well known because I have been seeing him for the last 2 years at [facility]. The patient was continued with his medication, which is Aricept 10 mg at bedtime, Namenda. I initiated increase to 5 mg twice a day. I avoided giving any psychotropic as Dr. Tejada felt he may be having difficulty with swallowing because of the psychotropic medications. The patient was kept on docusate and he was on Zofran and potassium. The patient progressively got better. He was able to eat better. He was sleeping well, eating well. He was not acting anyway dangerous, so as he improved, we felt he was able to eat and he was not acting anyway dangerous. We felt he could be discharged to a lesser level of care. FINAL DIAGNOSES: AXIS I: Unspecified psychosis and dementia. MEDICAL DIAGNOSES: Deferred to Dr. Tejada. The patient will go back to [facility]. I will follow up with the patient there as well as Dr. Tejada. EXPECTED OUTCOME: Stable if the patient complies with the above. JOB# [id number]
== END 2017-02-27 16:30 | DRG 885 ==
LOC: GERO 14:35
PROVIDERS: ADMIT Psychiatry & Neurology Psychiatry; ATTEND Psychiatry & Neurology Psychiatry
DX: F29 Unspecified psychosis not due to a substance or known physiological condition (principal); F03.91 Unspecified dementia, unspecified severity, with behavioral disturbance; I48.91 Unspecified atrial fibrillation; E86.0 Dehydration; D64.9 Anemia, unspecified; F20.9 Schizophrenia, unspecified; K21.9 Gastro-esophageal reflux disease without esophagitis; M19.90 Unspecified osteoarthritis, unspecified site
CPT/HCPCS: 36415-UA; 71010-TC; 80048-TC; 85025-TC; Q0162; X3401; X4304; Z7610